=== PATIENT | female | born 1965 | race African-American/Black ===

== ENCOUNTER 2017-05-10 10:51 | Emergency (ER) | payer SELFPAY | END 2017-05-10 12:29 | disposition home or self-care (01) | LOC: ER 10:51 | DX: S16.1XXA Strain of muscle, fascia and tendon at neck level, initial encounter (principal); M54.6 Pain in thoracic spine; I10 Essential (primary) hypertension; V43.62XA Car passenger injured in collision with other type car in traffic accident, initial encounter; Y93.89 Activity, other specified; Y92.410 Unspecified street and highway as the place of occurrence of the external cause; Y99.8 Other external cause status | CPT/HCPCS: 72040; 72072; 99284 ==

== ENCOUNTER 2018-01-06 20:50 | Emergency (ER) | payer SELFPAY ==
[~2018-01-06] VITALS: Ht 170.2 cm; Wt 77.1 kg
[~2018-01-06 20:50] MED LIST: METH4TAB2 PO
--- NOTE | 2018-01-06 21:36 | PHYS DOC ---
Past Medical History Past Medical History: Hypertension, Unknown Additional Past Medical Histor: HEART MURMUR Past Surgical History: No Surgical History Additional Past Surgical Histo: blood clot Alcohol Use: Occasionally Drug Use: None Adult General Chief Complaint Chief Complaint: DIZZY/LIGHT HEADED HPI HPI Patient is a 53 year old female who comes in for dental pain and high blood pressure. She state the dental pain causes her blood pressure to elevate and the dentist won't help her with her teeth until her blood pressure is under control, so she if frustrated and not sure what to do. Pt has felt a little dizzy today but states she will often feel this way when her pressure is high. Pt denies neurological deficits. She is ambulatory in to the ER in no distress. Initial blood pressure is 170/90's. Review of Systems Review of Systems Constitutional: Denies fever or chills HEENT: Reports dental pain Respiratory: Denies cough or shortness of breath Cardiovascular: Denies chest pain GI: Denies abdominal pain, nausea, vomiting, bloody stools or diarrhea Musculoskeletal: Denies back pain or joint pain Integument: Denies rash or skin lesions Neurologic: Denies headache, focal weakness or sensory changes. Intermittent dizziness. All other systems were reviewed and found to be within normal limits, except as documented in this note. Current Medications Current Medications Current Medications Medications (Trade) Dose Ordered Sig/Mildred Start Time Stop Time Status Last Admin Dose Admin Acetaminophen/ Hydrocodone Bitart (Lortab 10/325) 1 tab 1X ONCE 01/06/18 21:45 01/06/18 21:46 DC 01/06/18 21:48 1 TAB Clonidine HCl (Catapres) 0.2 mg 1X ONCE 01/06/18 22:30 01/06/18 22:32 DC 01/06/18 22:36 0.2 MG Hydrochlorothiazide (Microzide) 25 mg 1X ONCE 01/06/18 21:45 01/06/18 21:46 DC 01/06/18 21:51 25 MG Ibuprofen (Motrin) 800 mg 1X ONCE 01/06/18 23:15 01/06/18 23:16 DC 01/06/18 23:27 800 MG Ondansetron HCl (Zofran Odt) 4 mg 1X ONCE 01/06/18 23:15 01/06/18 23:16 DC 01/06/18 23:28 4 MG Penicillin V Potassium (Veetid) 500 mg 1X ONCE 01/06/18 21:45 01/06/18 21:46 DC 01/06/18 21:47 500 MG Allergies Allergies Allergies Coded Allergies Type Severity Reaction Last Updated Verified amoxicillin Allergy Mild RASH 01/07/18 Yes Physical Exam Physical Exam Constitutional: Well developed, well nourished, no acute distress, non-toxic appearance. HENT: Normocephalic, atraumatic, bilateral external ears normal, oropharynx moist, no oral exudates, nose normal. Widespread dental decay. Pain in lower left tooth that is carious and tender to palpation. No abscess identified. Eyes: PERRLA, EOMI, conjunctiva normal, no discharge. Neck: Normal range of motion, no tenderness, supple, no stridor. Cardiovascular:Heart rate regular rhythm, no murmur Lungs & Thorax: Bilateral breath sounds clear to auscultation Abdomen: Bowel sounds normal, soft, no tenderness, no masses, no pulsatile masses. Skin: Warm, dry, no erythema, no rash. Back: No tenderness, no CVA tenderness. Extremities: No tenderness, no cyanosis, no clubbing, ROM intact, no edema. Neurologic: Alert and oriented X 3, normal motor function, normal sensory function, no focal deficits noted. Ambulatory in to the ER without difficulty. Psychologic: Affect normal, judgement normal, mood normal. Current Patient Data Vital Signs Vital Signs Date Time Temp Pulse Resp B/P (MAP) Pulse Ox O2 Delivery O2 Flow Rate FiO2 01/06/18 22:36 71 183/103 01/06/18 21:48 16 98 Room Air 01/06/18 21:26 98.6 98.6 EKG EKG [] Radiology/Procedures Radiology/Procedures [] Course & Med Decision Making Course & Med Decision Making Pertinent Labs and Imaging studies reviewed. (See chart for details) Pt was given [place], P[facility] VK and HCTZ and blood pressure was rechecked and was actually higher, so she was given Clonidine 0.2mg. It was rechecked and better but still elevated. She was still reporting pain so Ibuprofen was given and blood pressure will be rechecked in 30 minutes. Discussed with pt the importance of low salt diet and close fu with PCP. Stacy Disclaimer Stacy Disclaimer This electronic medical record was generated, in whole or in part, using a voice recognition dictation system. Departure Departure Impression: Primary Impression: High blood pressure Additional Impression: Pain, dental Disposition: HOME, SELF-CARE Condition: IMPROVED Referrals: NO PCP (PCP) RAQUEL PERRY MD Patient Instructions: Dental Pain, [id number], Hypertension Additional Instructions: You will need close follow up by a primary care provider as well as a dentist. Scripts Clindamycin Hcl (CLINDAMYCIN HCL) 300 Mg Capsule 1 CAP PO TID, #30 CAP Prov: WILBUR LOONEY APRN 01/07/18 Hydrochlorothiazide (HYDROCHLOROTHIAZIDE TABLET ) 25 Mg Tablet 1 TAB PO DAILY, #30 TAB 5 Refills Prov: TERRI PIÑA 01/06/18 Hydrocodone/Apap 5-325 (NORCO 5-325 TABLET) 1 Each Tablet 1 TAB PO TID, #15 TAB Prov: TERRI PIÑA 01/06/18 Problem Qualifiers TERRI PIÑA Jan 06, 2018 21:36 WILBUR LOONEY APRN Jan 07, 2018 00:17
[2018-01-06] MEDS ORDERED: HYDROcodone/APAP 10/325 1 TAB TABLET PO ONE (21:45)
[2018-01-06] MEDS ORDERED: hydroCHLOROthiazide 12.5 MG CAPSULE PO ONE (21:45)
[2018-01-06] MEDS ORDERED: PENICILLIN V K 250 MG TABLET. PO ONE (21:45)
[2018-01-06] MEDS ORDERED: AMOX500T PO (21:59)
[2018-01-06] MEDS ORDERED: HYDR-971 PO (21:59)
[2018-01-06] MEDS ORDERED: HYDR25TA9 PO (21:59)
[2018-01-06] MEDS ORDERED: cloNIDine HCL 0.1 MG TABLET PO ONE (22:30)
[2018-01-06] MEDS ORDERED: ONDANSETRON ODT 4 MG TAB.RAPDIS. PO ONE (23:15)
[2018-01-06] MEDS ORDERED: IBUPROFEN 800 MG TABLET. PO ONE (23:15)
[2018-01-06 23:58] VITALS: BP 153/87
[2018-01-07] MEDS ORDERED: CLIN300C8 PO (00:17)
== END 2018-01-07 00:20 | disposition home or self-care (01) ==
LOC: ER 20:50
DX: K08.89 Other specified disorders of teeth and supporting structures (principal); I10 Essential (primary) hypertension; Z88.1 Allergy status to other antibiotic agents
CPT/HCPCS: 99284; Q0162

== ENCOUNTER 2018-01-16 09:09 | Emergency (ER) | payer SELFPAY ==
[~2018-01-16] VITALS: Ht 170.2 cm; Wt 77.1 kg
[~2018-01-16 09:09] MED LIST changes: +AMOX500T PO; +CLIN300C8 PO; +HYDR-971 PO; +HYDR25TA9 PO
--- NOTE | 2018-01-16 09:28 | EKG ---
[facility] [address] [place] [address] Test Date: 2018-01-16 Test Time: 09:13:45 Pat Name: CHRIS MORALES Department: Room: Gender: F [employer] Director: : 1965 Requested By: AMY HERNANDEZ Order Number: [id number] Reading MD: Abhijeet Ruiz MD Measurements Intervals Mobile Rate: 78 P: 43 DC: 176 QRS: -9 QRSD: 82 T: 14 QT: 382 QTc: 439 Interpretive Statements SINUS RHYTHM Electronically Signed On 01-16-2018 10:38:21 CDT by Abhijeet Ruiz MD
[2018-01-16 09:41] LABS: BASO % 0 % (0-3); EOS # 0.1 x10^3/uL (0.0-0.7); EOS % 1 % (0-3); HEMATOCRIT 47.8 % (36.0-47.0); HEMOGLOBIN 16.3 g/dL (12.0-15.5); LYMPH # 1.8 x10^3/uL (1.0-4.8); LYMPH % 18 % (24-48); MEAN CORPUSCULAR HEMOGLOBIN 29 pg (25-35); MEAN CORPUSCULAR HGB CONC 34 g/dL (31-37); MEAN CORPUSCULAR VOLUME 84 fL (79-100); MONO # 0.8 x10^3/uL (0.0-1.1); MONO % 9 % (0-9); NEUT % 72 % (31-73); PLATELET COUNT 235 x10^3/uL (140-400); RED BLOOD COUNT 5.68 x10^6/uL (3.50-5.40); RED CELL DISTRIBUTION WIDTH 13.8 % (11.5-14.5); WHITE BLOOD COUNT 9.7 x10^3/uL (4.0-11.0)
[2018-01-16 09:49] LABS: CALCIUM 9.9 mg/dL (8.5-10.1); GFR 69.9; POTASSIUM 3.4 mmol/L (3.5-5.1); PROTHROMBIN TIME PATIENT 13.2 SEC (11.7-14.0)
[2018-01-16 09:50] LABS: BILIRUBIN,URINE NEGATIVE (NEG); CLARITY,URINE CLOUDY; COLOR,URINE YELLOW; NITRITE,URINE POSITIVE (NEG); PH,URINE 6.5; PROTEIN,URINE NEGATIVE (NEG-TRACE); UROBILINOGEN,URINE 0.2 mg/dL (0.2 mg/dL)
[2018-01-16 09:55] LABS: ALBUMIN 4.1 g/dL (3.4-5.0); ALBUMIN/GLOBULIN RATIO 1.1 (1.0-1.7); MAGNESIUM 2.2 mg/dL (1.8-2.4); TOTAL BILIRUBIN 0.4 mg/dL (0.2-1.0)
[2018-01-16 09:58] LABS: BACTERIA,URINE MANY /HPF (0-FEW); SQUAMOUS EPITHELIAL CELL,UR FEW /LPF; WBC,URINE TNTC /HPF (0-4)
[2018-01-16] MEDS ORDERED: BUPIVAC MPF-EPI 0.5%-1:200000 30 ML VIAL. INJ ONE (10:00)
[2018-01-16 10:03] LABS: CREATINE KINASE 117 U/L (26-192)
--- NOTE | 2018-01-16 10:38 | RAD ---
Examination: CHEST PA LATERAL History: DIZZINESS X TODAY WITH LEFT UPPER CHEST/SHOULDER PAIN Comparison/Correlation: 06/03/2011 two-view chest x-ray exam Findings: PA and lateral views of chest were obtained. Heart size and pulmonary vasculature are normal. No infiltrate or pleural effusion. No pneumothorax. Bony structures are unremarkable. Impression: No active disease. Electronically signed by: Cortez López MD (01/16/2018 10:34 AM) [id number]
[2018-01-16] MEDS ORDERED: DEXAMETHASONE SOD PHOS 20 MG/5 ML VIAL. IV ONE (10:45)
--- NOTE | 2018-01-16 12:37 | PHYS DOC ---
Past Medical History Past Medical History: Hypertension, Unknown Additional Past Medical Histor: HEART MURMUR Past Surgical History: No Surgical History Additional Past Surgical Histo: blood clot Alcohol Use: Occasionally Drug Use: None Adult General Chief Complaint Chief Complaint: DIZZY/LIGHT HEADED HPI HPI Patient is a 53 year old [f__sex] who presents with [] Review of Systems Review of Systems Constitutional: Denies fever or chills [] Eyes: Denies change in visual acuity, redness, or eye pain [] HENT: Denies nasal congestion or sore throat [] Respiratory: Denies cough or shortness of breath [] Cardiovascular: No additional information not addressed in HPI [] GI: Denies abdominal pain, nausea, vomiting, bloody stools or diarrhea [] : Denies dysuria or hematuria [] Musculoskeletal: Denies back pain or joint pain [] Integument: Denies rash or skin lesions [] Neurologic: Denies headache, focal weakness or sensory changes [] Endocrine: Denies polyuria or polydipsia [] All other systems were reviewed and found to be within normal limits, except as documented in this note. Current Medications Current Medications Current Medications Medications (Trade) Dose Ordered Sig/Mildred Start Time Stop Time Status Last Admin Dose Admin Bupivacaine HCl/ Epinephrine Bitart (Sensorcain-Mpf Epi 0.5%-1:[id number]) 30 ml 1X ONCE 01/16/18 10:00 01/16/18 10:02 DC 01/16/18 10:12 30 ML Ceftriaxone Sodium 50 ml @ 100 mls/hr 1X ONCE 01/16/18 10:45 01/16/18 11:14 DC 01/16/18 10:50 100 MLS/HR Dexamethasone Sodium Phosphate (Decadron) 10 mg 1X ONCE 01/16/18 10:45 01/16/18 10:46 DC 01/16/18 10:50 10 MG Allergies Allergies Allergies Coded Allergies Type Severity Reaction Last Updated Verified amoxicillin Allergy Intermediate RASH 01/16/18 Yes Physical Exam Physical Exam Constitutional: Well developed, well nourished, no acute distress, non-toxic appearance. [] HENT: Normocephalic, atraumatic, bilateral external ears normal, oropharynx moist, no oral exudates, nose normal. [] Eyes: PERRLA, EOMI, conjunctiva normal, no discharge. [] Neck: Normal range of motion, no tenderness, supple, no stridor. [] Cardiovascular:Heart rate regular rhythm, no murmur [] Lungs & Thorax: Bilateral breath sounds clear to auscultation [] Abdomen: Bowel sounds normal, soft, no tenderness, no masses, no pulsatile masses. [] Skin: Warm, dry, no erythema, no rash. [] Back: No tenderness, no CVA tenderness. [] Extremities: No tenderness, no cyanosis, no clubbing, ROM intact, no edema. [] Neurologic: Alert and oriented X 3, normal motor function, normal sensory function, no focal deficits noted. [] Psychologic: Affect normal, judgement normal, mood normal. [] Current Patient Data Vital Signs Vital Signs Date Time Temp Pulse Resp B/P (MAP) Pulse Ox O2 Delivery O2 Flow Rate FiO2 01/16/18 12:54 72 20 100 01/16/18 09:18 98.1 180/95 (123) Room Air 98.1 Lab Values Laboratory Tests Test 01/16/18 09:29 01/16/18 09:35 01/16/18 11:30 White Blood Count 9.7 x10^3/uL (4.0-11.0) Red Blood Count 5.68 x10^6/uL (3.50-5.40) H Hemoglobin 16.3 g/dL (12.0-15.5) H Hematocrit 47.8 % (36.0-47.0) H Mean Corpuscular Volume 84 fL (79-100) Mean Corpuscular Hemoglobin 29 pg (25-35) Mean Corpuscular Hemoglobin Concent 34 g/dL (31-37) Red Cell Distribution Width 13.8 % (11.5-14.5) Platelet Count 235 x10^3/uL (140-400) Neutrophils (%) (Auto) 72 % (31-73) Lymphocytes (%) (Auto) 18 % (24-48) L Monocytes (%) (Auto) 9 % (0-9) Eosinophils (%) (Auto) 1 % (0-3) Basophils (%) (Auto) 0 % (0-3) Neutrophils # (Auto) 7.0 x10^3uL (1.8-7.7) Lymphocytes # (Auto) 1.8 x10^3/uL (1.0-4.8) Monocytes # (Auto) 0.8 x10^3/uL (0.0-1.1) Eosinophils # (Auto) 0.1 x10^3/uL (0.0-0.7) Basophils # (Auto) 0.0 x10^3/uL (0.0-0.2) Prothrombin Time 13.2 SEC (11.7-14.0) Prothrombin Time INR 1.1 (0.8-1.1) Sodium Level 141 mmol/L (136-145) Potassium Level 3.4 mmol/L (3.5-5.1) L Chloride Level 102 mmol/L (98-107) Carbon Dioxide Level 26 mmol/L (21-32) Anion Gap 13 (6-14) Blood Urea Nitrogen 17 mg/dL (7-20) Creatinine 1.0 mg/dL (0.6-1.0) Estimated GFR (Cockcroft-Gault) 69.9 BUN/Creatinine Ratio 17 (6-20) Glucose Level 93 mg/dL (70-99) Calcium Level 9.9 mg/dL (8.5-10.1) Magnesium Level 2.2 mg/dL (1.8-2.4) Total Bilirubin 0.4 mg/dL (0.2-1.0) Aspartate Amino Transferase (AST) 18 U/L (15-37) Alanine Aminotransferase (ALT) 38 U/L (14-59) Alkaline Phosphatase 141 U/L (46-116) H Creatine Kinase 117 U/L (26-192) Creatine Kinase MB (Mass) < 0.5 ng/mL (0.0-3.6) Creatine Kinase MB Relative Index % (0-4) Troponin I Quantitative < 0.017 ng/mL (0.000-0.055) < 0.017 ng/mL (0.000-0.055) KJ-Sov-N-Type Natriuretic Peptide 45 pg/mL (0-124) Total Protein 8.0 g/dL (6.4-8.2) Albumin 4.1 g/dL (3.4-5.0) Albumin/Globulin Ratio 1.1 (1.0-1.7) Lipase 167 U/L (73-393) Urine Collection Type Unknown Urine Color Yellow Urine Clarity Cloudy Urine pH 6.5 Urine Specific [place] 1.015 Urine Protein Negative mg/dL (NEG-TRACE) Urine Glucose (UA) Negative mg/dL (NEG) Urine Ketones (Stick) Negative mg/dL (NEG) Urine Blood Small (NEG) Urine Nitrite Positive (NEG) Urine Bilirubin Negative (NEG) Urine Urobilinogen Dipstick 0.2 mg/dL (0.2 mg/dL) Urine Leukocyte Esterase Large (NEG) Urine RBC 3-5 /HPF (0-2) Urine WBC Tntc /HPF (0-4) Urine Squamous Epithelial Cells Few /LPF Urine Renal Epithelial Cells Occ /LPF Urine Bacteria Many /HPF (0-FEW) Urine Mucus Slight /LPF Laboratory Tests 01/16/18 09:29 Laboratory Tests 01/16/18 09:29 EKG EKG @0913, NSR at 78bpm, NO ST elevation Radiology/Procedures Radiology/Procedures [] Course & Med Decision Making Course & Med Decision Making Pertinent Labs and Imaging studies reviewed. (See chart for details) [] Dragon Disclaimer Dragon Disclaimer This electronic medical record was generated, in whole or in part, using a voice recognition dictation system. Departure Departure Impression: Primary Impression: Pain, dental Additional Impressions: Shoulder pain Urinary tract infection Disposition: HOME, SELF-CARE Condition: STABLE Referrals: NO PCP (PCP) Patient Instructions: Dental Caries-Brief, Shoulder Pain, [id number], Toothache-Brief, Urinary Tract Infection, Khhx-[id number] Scripts Cephalexin (KEFLEX) 500 Mg Capsule 500 MG PO TID for 7 Days, #21 CAP Prov: AMY HERNANDEZ DO 01/16/18 Chlorhexidine Gluconate (PERIDEX) 15 Ml Mouthwash 15 ML PO BID, #946 ML Prov: AMY HERNANDEZ DO 01/16/18 Prednisone (PREDNISONE) 20 Mg Tablet 2 TAB PO DAILY, #8 TAB Start on Mon01/17/18 Prov: AMY HERNANDEZ DO 01/16/18 Hydrocodone/Apap 5-325 (NORCO 5-325 TABLET) 1 Each Tablet 1 TAB PO PRN Q6HRS PRN for PAIN, #10 TAB 0 Refills Prov: AMY HERNANDEZ DO 01/16/18 Problem Qualifiers Additional Impressions: Shoulder pain Chronicity: acute Laterality: left Qualified Codes: M25.512 - Pain in left shoulder Urinary tract infection Urinary tract infection type: acute cystitis AMY HERNANDEZ DO Jan 16, 2018 12:37
[2018-01-16] MEDS ORDERED: PRED20TA PO (12:42)
[2018-01-16] MEDS ORDERED: HYDR-971 PO (12:42)
[2018-01-16] MEDS ORDERED: CEPH-264 PO (12:42)
[2018-01-16] MEDS ORDERED: CHLO15MO2 PO (12:42)
[2018-01-16 12:54] VITALS: BP 180/100
== END 2018-01-16 12:55 | disposition home or self-care (01) ==
LOC: ER 09:09
DX: N39.0 Urinary tract infection, site not specified (principal); M25.512 Pain in left shoulder; K08.89 Other specified disorders of teeth and supporting structures; R42 Dizziness and giddiness; R55 Syncope and collapse; I10 Essential (primary) hypertension; Z88.1 Allergy status to other antibiotic agents
CPT/HCPCS: 36415; 71046; 80053; 81001; 82553; 83690; 83735; 83880; 84484; 85025; 85610; 87086; 93005; 96365; 96372; 96375; 99285; J0690; J1100; J3490; 87186

== ENCOUNTER 2018-06-12 13:35 | Emergency (ER) | payer SELFPAY ==
[~2018-06-12] VITALS: Ht 170.2 cm; Wt 78.0 kg
[~2018-06-12 13:35] MED LIST changes: +CEPH-264 PO; +CHLO15MO2 PO; +HYDR-2145 PO; +HYDR-3164 PO; -HYDR-971 PO; -HYDR25TA9 PO; +PRED20TA PO
[2018-06-12 14:05] LABS: BASO # 0.1 x10^3/uL (0.0-0.2); BASO % 1 % (0-3); EOS # 0.2 x10^3/uL (0.0-0.7); EOS % 2 % (0-3); HEMOGLOBIN 15.5 g/dL (12.0-15.5); LYMPH # 2.3 x10^3/uL (1.0-4.8); LYMPH % 23 % (24-48); MEAN CORPUSCULAR HEMOGLOBIN 28 pg (25-35); MEAN CORPUSCULAR HGB CONC 34 g/dL (31-37); MEAN CORPUSCULAR VOLUME 81 fL (79-100); MONO # 0.7 x10^3/uL (0.0-1.1); MONO % 7 % (0-9); NEUT # 6.5 x10^3uL (1.8-7.7); NEUT % 67 % (31-73); PLATELET COUNT 264 x10^3/uL (140-400); RED BLOOD COUNT 5.65 x10^6/uL (3.50-5.40); RED CELL DISTRIBUTION WIDTH 15.1 % (11.5-14.5); WHITE BLOOD COUNT 9.7 x10^3/uL (4.0-11.0)
[2018-06-12 14:13] LABS: CALCIUM 9.7 mg/dL (8.5-10.1); CREATININE 0.9 mg/dL (0.6-1.0); POTASSIUM 3.8 mmol/L (3.5-5.1)
[2018-06-12] MEDS ORDERED: cloNIDine HCL 0.1 MG TABLET PO ONE (14:15)
[2018-06-12 14:19] LABS: ALBUMIN 3.7 g/dL (3.4-5.0); ALBUMIN/GLOBULIN RATIO 0.8 (1.0-1.7); TOTAL BILIRUBIN 0.3 mg/dL (0.2-1.0); TOTAL PROTEIN 8.1 g/dL (6.4-8.2)
[2018-06-12 15:05] LABS: BILIRUBIN,URINE NEGATIVE (NEG); CLARITY,URINE CLEAR; COLOR,URINE YELLOW; NITRITE,URINE NEGATIVE (NEG); PROTEIN,URINE NEGATIVE (NEG-TRACE)
[2018-06-12 15:19] LABS: BACTERIA,URINE MODERATE /HPF (0-FEW); RBC,URINE RARE /HPF (0-2); WBC,URINE >40 /HPF (0-4)
[2018-06-12 15:20] LABS: SQUAMOUS EPITHELIAL CELL,UR FEW /LPF
[2018-06-12] MEDS ORDERED: SULF1TAB24 PO (15:46)
[2018-06-12] MEDS ORDERED: HYDR12.58 PO (15:46)
--- NOTE | 2018-06-12 15:47 | PHYS DOC ---
Past Medical History Past Medical History: Hypertension, Unknown Additional Past Medical Histor: HEART MURMUR Past Surgical History: No Surgical History Additional Past Surgical Histo: blood clot Alcohol Use: Occasionally Drug Use: None Adult General Chief Complaint Chief Complaint: HYPERTENSION HPI HPI Patient is a 53 year old female who presents with high blood pressure and headache. The patient states that she left work because she felt like she was having an episode of high blood pressure. She has a headache. She has been taking her HCTZ as directed. She has not taken anything for her headache. She denies chest pain or diaphoresis. Review of Systems Review of Systems Constitutional: Denies fever or chills [] Respiratory: Denies cough or shortness of breath [] Cardiovascular: No additional information not addressed in HPI [] GI: Denies abdominal pain, nausea, vomiting, bloody stools or diarrhea [] : Denies dysuria or hematuria [] Musculoskeletal: Denies back pain or joint pain [] Integument: Denies rash or skin lesions [] Neurologic: See HPI Endocrine: Denies polyuria or polydipsia [] All other systems were reviewed and found to be within normal limits, except as documented in this note. Current Medications Current Medications Current Medications Medications (Trade) Dose Ordered Sig/Mildred Start Time Stop Time Status Last Admin Dose Admin Clonidine HCl (Catapres) 0.1 mg 1X ONCE 06/12/18 14:15 06/12/18 14:16 DC 06/12/18 14:14 0.1 MG Allergies Allergies Allergies Coded Allergies Type Severity Reaction Last Updated Verified amoxicillin Allergy Intermediate RASH 01/16/18 Yes Physical Exam Physical Exam Constitutional: Well developed, well nourished, no acute distress, non-toxic appearance. [] HENT: Normocephalic, atraumatic, bilateral external ears normal, oropharynx moist, no oral exudates, nose normal. [] Eyes: PERRLA, EOMI, conjunctiva normal, no discharge. [] Neck: Normal range of motion, no tenderness, supple, no stridor. [] Cardiovascular:Heart rate regular rhythm, no murmur [] Lungs & Thorax: Bilateral breath sounds clear to auscultation [] Abdomen: Bowel sounds normal, soft, no tenderness, no masses, no pulsatile masses. [] Skin: Warm, dry, no erythema, no rash. [] Back: No tenderness, no CVA tenderness. [] Extremities: No tenderness, no cyanosis, no clubbing, ROM intact, no edema. [] Neurologic: Alert and oriented X 3, normal motor function, normal sensory function, no focal deficits noted, cranial nerves II-XII are grossly intact. [] Psychologic: Affect normal, judgement normal, mood normal. [] Current Patient Data Vital Signs Lab Values Laboratory Tests Test 06/12/18 13:55 06/12/18 14:50 White Blood Count 9.7 x10^3/uL (4.0-11.0) Red Blood Count 5.65 x10^6/uL (3.50-5.40) H Hemoglobin 15.5 g/dL (12.0-15.5) Hematocrit 46.0 % (36.0-47.0) Mean Corpuscular Volume 81 fL (79-100) Mean Corpuscular Hemoglobin 28 pg (25-35) Mean Corpuscular Hemoglobin Concent 34 g/dL (31-37) Red Cell Distribution Width 15.1 % (11.5-14.5) H Platelet Count 264 x10^3/uL (140-400) Neutrophils (%) (Auto) 67 % (31-73) Lymphocytes (%) (Auto) 23 % (24-48) L Monocytes (%) (Auto) 7 % (0-9) Eosinophils (%) (Auto) 2 % (0-3) Basophils (%) (Auto) 1 % (0-3) Neutrophils # (Auto) 6.5 x10^3uL (1.8-7.7) Lymphocytes # (Auto) 2.3 x10^3/uL (1.0-4.8) Monocytes # (Auto) 0.7 x10^3/uL (0.0-1.1) Eosinophils # (Auto) 0.2 x10^3/uL (0.0-0.7) Basophils # (Auto) 0.1 x10^3/uL (0.0-0.2) Sodium Level 139 mmol/L (136-145) Potassium Level 3.8 mmol/L (3.5-5.1) Chloride Level 103 mmol/L (98-107) Carbon Dioxide Level 25 mmol/L (21-32) Anion Gap 11 (6-14) Blood Urea Nitrogen 17 mg/dL (7-20) Creatinine 0.9 mg/dL (0.6-1.0) Estimated GFR (Cockcroft-Gault) 79.0 BUN/Creatinine Ratio 19 (6-20) Glucose Level 95 mg/dL (70-99) Calcium Level 9.7 mg/dL (8.5-10.1) Total Bilirubin 0.3 mg/dL (0.2-1.0) Aspartate Amino Transferase (AST) 16 U/L (15-37) Alanine Aminotransferase (ALT) 19 U/L (14-59) Alkaline Phosphatase 116 U/L (46-116) Total Protein 8.1 g/dL (6.4-8.2) Albumin 3.7 g/dL (3.4-5.0) Albumin/Globulin Ratio 0.8 (1.0-1.7) L Urine Collection Type Unknown Urine Color Yellow Urine Clarity Clear Urine pH 6.0 Urine Specific [place] 1.015 Urine Protein Negative mg/dL (NEG-TRACE) Urine Glucose (UA) Negative mg/dL (NEG) Urine Ketones (Stick) Negative mg/dL (NEG) Urine Blood Small (NEG) Urine Nitrite Negative (NEG) Urine Bilirubin Negative (NEG) Urine Urobilinogen Dipstick 1.0 mg/dL (0.2 mg/dL) Urine Leukocyte Esterase Large (NEG) Urine RBC Rare /HPF (0-2) Urine WBC >40 /HPF (0-4) Urine Squamous Epithelial Cells Few /LPF Urine Bacteria Moderate /HPF (0-FEW) Laboratory Tests 06/12/18 13:55 Laboratory Tests 06/12/18 13:55 Microbiology 06/12/18 Urine Culture - Final, Complete 06/12/18 Urine Culture Result 1 (PETRA) - Final, Complete 06/12/18 Antimicrobic Susceptibility - Final, Complete EKG EKG [] Radiology/Procedures Radiology/Procedures [] Course & Med Decision Making Course & Med Decision Making Pertinent Labs and Imaging studies reviewed. (See chart for details) []The patient was given a dose of clonidine in the ED. Dragon Disclaimer Dragon Disclaimer This electronic medical record was generated, in whole or in part, using a voice recognition dictation system. Departure Departure Impression: Primary Impression: High blood pressure Additional Impression: UTI (urinary tract infection) Disposition: 01 HOME, SELF-CARE Condition: STABLE Referrals: NO PCP (PCP) Patient Instructions: Hypertension, Urinary Tract Infection Additional Instructions: Take the medication as directed. Establish care at a clinic for further evaluation and management of your hypertension. Have your urine rechecked in 1 week to make sure your urinary tract infection is cleared. Scripts Hydrochlorothiazide (HYDROCHLOROTHIAZIDE TABLET) 12.5 Mg Tablet 12.5 MG PO DAILY for DIURETIC, #30 TAB 0 Refills Prov: WILBUR LOONEY APRN 06/12/18 Sulfamethoxazole/Trimethoprim (BACTRIM DS TABLET) 1 Each Tablet 1 TAB PO BID for UTI, #14 TAB Prov: WILBUR LOONEY APRN 06/12/18 Problem Qualifiers WILBUR LOONEY APRN Jun 12, 2018 15:47
[2018-06-12 16:10] VITALS: BP 159/98
== END 2018-06-12 16:15 | disposition home or self-care (01) ==
LOC: ER 13:35
DX: I10 Essential (primary) hypertension (principal); N39.0 Urinary tract infection, site not specified; Z88.1 Allergy status to other antibiotic agents
CPT/HCPCS: 36415; 80053; 81001; 85025; 87086; 87186; 99283

== ENCOUNTER 2018-11-21 13:48 | Emergency (ER) | payer OTHER ==
[~2018-11-21] VITALS: Ht 170.2 cm; Wt 75.7 kg
[~2018-11-21 13:48] MED LIST changes: +HYDR12.58 PO; +SULF1TAB24 PO
[2018-11-21 14:03] VITALS: BP 135/93
[2018-11-21 15:16] LABS: BILIRUBIN,URINE NEGATIVE (NEG); CLARITY,URINE CLEAR; COLOR,URINE YELLOW; NITRITE,URINE POSITIVE (NEG); PH,URINE 5.5; PROTEIN,URINE NEGATIVE (NEG-TRACE); UROBILINOGEN,URINE 0.2 mg/dL (0.2 mg/dL)
[2018-11-21 15:32] LABS: BACTERIA,URINE MANY /HPF (0-FEW); HYALINE CASTS, URINE FEW /HPF; RBC,URINE 0 /HPF (0-2); SQUAMOUS EPITHELIAL CELL,UR MOD /LPF; WBC,URINE >40 /HPF (0-4)
--- NOTE | 2018-11-21 15:32 | RAD ---
EXAM: Lumbar spine, 3 views. HISTORY: Pain. COMPARISON: None. FINDINGS: 3 views of the lumbar spine are obtained. There is sacralization of the L5 transverse processes resulting in articulation with the underlying sacrum, a normal variant. 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 There is no listhesis. The lumbar vertebral bodies are normal in height and the lumbar disc spaces are preserved. IMPRESSION: 1. 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 2. No acute osseous finding. Electronically signed by: April Stovall MD (11/21/2018 3:29 PM) [facility]
[2018-11-21] MEDS ORDERED: CIPR500T94 PO (16:08)
[2018-11-21] MEDS ORDERED: METH4TAB2 PO (16:08)
[2018-11-21] MEDS ORDERED: DICL50TA4 PO (16:08)
[2018-11-21] MEDS ORDERED: METH-37 PO (16:08)
--- NOTE | 2018-11-21 16:09 | PHYS DOC ---
Past Medical History Past Medical History: Hypertension, Unknown Additional Past Medical Histor: HEART MURMUR Past Surgical History: No Surgical History Additional Past Surgical Histo: blood clot Alcohol Use: Occasionally Drug Use: None Adult General Chief Complaint Chief Complaint: BACK PAIN OR INJURY [facility] HPI Patient is a 53 year old female with history of hypertension who presents to the ED today complaining of a throbbing intermittent 7 out of 10 bilateral low back pain nonradiating in nature that began a week ago after doing some lifting at work. Patient denies any loss of bowel or bladder function. Denies falling or injuring herself during this process but states the pain began after lifting boxes at work. Denies any numbness or tingling to bilateral lower extremities. Patient is also complaining of UTI symptoms including urgency frequency and dysuria. She states the symptoms began before her back pain began. Review of Systems Review of Systems Constitutional: Denies fever or chills [] Eyes: Denies change in visual acuity, redness, or eye pain [] HENT: Denies nasal congestion or sore throat [] Respiratory: Denies cough or shortness of breath [] Cardiovascular: No additional information not addressed in HPI [] GI: Denies abdominal pain, nausea, vomiting, bloody stools or diarrhea [] : Denies dysuria or hematuria [] Musculoskeletal: Reports low back pain Integument: Denies rash or skin lesions [] Neurologic: Denies headache, focal weakness or sensory changes [] All other systems were reviewed and found to be within normal limits, except as documented in this note. Allergies Allergies Allergies Coded Allergies Type Severity Reaction Last Updated Verified amoxicillin Allergy Intermediate RASH 01/16/18 Yes Physical Exam Physical Exam Constitutional: Well developed, well nourished, no acute distress, non-toxic appearance. [] HENT: Normocephalic, atraumatic, bilateral external ears normal, oropharynx moist, no oral exudates, nose normal. [] Eyes: PERRLA, EOMI, conjunctiva normal, no discharge. [] Neck: Normal range of motion, no tenderness, supple, no stridor. [] Cardiovascular:Heart rate regular rhythm, no murmur [] Lungs & Thorax: Bilateral breath sounds clear to auscultation [] Abdomen: Bowel sounds normal, soft, no tenderness, no masses, no pulsatile masses. [] Skin: Warm, dry, no erythema, no rash. [] Back: Diffuse spinal muscle tenderness to bilateral lumbar spine, no midline lumbar spine tenderness, no CVA tenderness. [] Extremities: No tenderness, no cyanosis, no clubbing, ROM intact, no edema. [] Neurologic: Alert and oriented X 3, normal motor function, normal sensory function, no focal deficits noted. [] Psychologic: Affect normal, judgement normal, mood normal. [] Current Patient Data Vital Signs Vital Signs Date Time Temp Pulse Resp B/P (MAP) Pulse Ox O2 Delivery O2 Flow Rate FiO2 11/21/18 14:03 98.0 82 18 135/93 (107) 99 Room Air 98.0 Lab Values Laboratory Tests Test 11/21/18 14:58 Urine Collection Type Unknown Urine Color Yellow Urine Clarity Clear Urine pH 5.5 Urine Specific [place] 1.015 Urine Protein Negative mg/dL (NEG-TRACE) Urine Glucose (UA) Negative mg/dL (NEG) Urine Ketones (Stick) Negative mg/dL (NEG) Urine Blood Moderate (NEG) Urine Nitrite Positive (NEG) Urine Bilirubin Negative (NEG) Urine Urobilinogen Dipstick 0.2 mg/dL (0.2 mg/dL) Urine Leukocyte Esterase Moderate (NEG) Urine RBC 0 /HPF (0-2) Urine WBC >40 /HPF (0-4) Urine Squamous Epithelial Cells Mod /LPF Urine Bacteria Many /HPF (0-FEW) Urine Hyaline Casts Few /HPF Urine Mucus Mod /LPF EKG EKG [] Radiology/Procedures Radiology/Procedures []PROCEDURE: LUMBAR SPINE 2-3V EXAM: Lumbar spine, 3 views. HISTORY: Pain. COMPARISON: None. FINDINGS: 3 views of the lumbar spine are obtained. There is sacralization of the L5 transverse processes resulting in articulation with the underlying sacrum, a normal variant. 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 There is no listhesis. The lumbar vertebral bodies are normal in height and the lumbar disc spaces are preserved. IMPRESSION: 1. 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 2. No acute osseous finding. Electronically signed by: April Stovall MD (11/21/2018 3:29 PM) [facility] DICTATED and SIGNED BY: APRIL STOVALL MD DATE: 11/21/18 1529 Course & Med Decision Making Course & Med Decision Making Pertinent Labs and Imaging studies reviewed. (See chart for details) This is a 53-year-old female patient who presents to the ED today with bilateral low back pain that began a week ago after lifting boxes at work. Also complaining of UTI symptoms. Lumbar spine x-rays are negative for any acute. Urine noted for UTI, discharged on Cipro. Dragon Disclaimer Dragon Disclaimer This electronic medical record was generated, in whole or in part, using a voice recognition dictation system. Departure Departure Impression: Primary Impression: Acute lumbosacral myofascial strain Additional Impression: Urinary tract infection Disposition: HOME, SELF-CARE Condition: STABLE Referrals: NO PCP (PCP) follow up in one week with your doctor Patient Instructions: Lumbosacral Strain, Urinary Tract Infection Additional Instructions: You were evaluated in the emergency room for low back pain as well as urinary tract infection. Please complete your prescribed antibiotic.Take the prescribed pain medicine as ordered. Follow-up with your own doctor in 1-2 weeks. Scripts Ciprofloxacin Hcl (CIPRO) 500 Mg Tablet 1 TAB PO BID, #14 TAB Prov: JAILENE OLSEN APRN 11/21/18 Methocarbamol (ROBAXIN) 500 Mg Tablet 1 TAB PO BID, #20 TAB Prov: JAILENE OLSEN APRN 11/21/18 Diclofenac Sodium (DICLOFENAC SODIUM) 50 Mg Tablet.dr 1 TAB PO BID, #20 TAB 0 Refills Prov: JAILENE OLSEN APRN 11/21/18 Methylprednisolone (MEDROL) 4 Mg Tab.ds.pk 1 PKG PO UD, #1 PKG Prov: JAILENE OLSEN APRN 11/21/18 Problem Qualifiers Primary Impression: Acute lumbosacral myofascial strain Encounter type: initial encounter Qualified Codes: S39.012A - Strain of muscle, fascia and tendon of lower back, initial encounter Additional Impression: Urinary tract infection Urinary tract infection type: site unspecified Hematuria presence: without hematuria Qualified Codes: N39.0 - Urinary tract infection, site not specified JAILENE OLSEN APRN Nov 21, 2018 16:08
== END 2018-11-21 16:19 | disposition home or self-care (01) ==
LOC: ER 13:48
DX: S39.012A Strain of muscle, fascia and tendon of lower back, initial encounter (principal); N39.0 Urinary tract infection, site not specified; I10 Essential (primary) hypertension; Z88.1 Allergy status to other antibiotic agents; X50.9XXA Other and unspecified overexertion or strenuous movements or postures, initial encounter; Y93.89 Activity, other specified; Y92.89 Other specified places as the place of occurrence of the external cause; Y99.0 Civilian activity done for income or pay
CPT/HCPCS: 72100; 81001; 87086; 99285

== ENCOUNTER 2020-01-10 12:27 | Observation (INO) | payer SELFPAY ==
[~2020-01-10] VITALS: Ht 170.2 cm; Wt 78.5 kg
[~2020-01-10 12:27] MED LIST changes: +CIPR500T94 PO; +DICL50TA4 PO; +METH-37 PO
--- NOTE | 2020-01-10 12:45 | PHYS DOC ---
Past Medical History Past Medical History: Hypertension, Unknown Additional Past Medical Histor: HEART MURMUR Past Surgical History: No Surgical History Additional Past Surgical Histo: blood clot Smoking Status: Current Every Day Smoker Alcohol Use: Occasionally Drug Use: None General Adult EDM: Chief Complaint: HYPERTENSION HPI: HPI: 55-year-old female presenting the emergency department today with hypertension. She reports having chronic hypertension having been prescribed medication by an ER doctor before and taking it and then running out of the medication never getting follow-up and not being treated. She denies chest pain or shortness of breath. She does have a mild headache. Her work is concerned for her and so sent her into the emergency department to be treated/medical screening exam. Review of systems negative for abdominal pain vomiting fevers chills decreased urine output chest pain shortness of breath or extremity numbness weakness or tingling. She denies facial droop or slurred speech. All other review of systems negative. ED course: 55-year-old female presenting with hypertension without symptoms. Initially blood pressure was significantly high. Blood pressure came down with labetalol well. Patient remains asymptomatic. Labs are remarkable for creatinine of 1.2. This is elevated from previous. Suggestive of acute kidney injury secondary to hypertensive emergency. On reexamination the patient's blood pressure is come down. We will admit the patient for IV fluids and continued management of the patient's blood pressure. We will speak with the hospitalist to admit the patient. Heart Score: Risk Factors: Risk Factors: DM, Current or recent (<one month) smoker, HTN, HLP, family history of CAD, obesity. Risk Scores: Score 0 - 3: 2.5% MACE over next 6 weeks - Discharge Home Score 4 - 6: 20.3% MACE over next 6 weeks - Admit for Clinical Observation Score 7 - 10: 72.7% MACE over next 6 weeks - Early Invasive Strategies Allergies: Allergies: Allergies Coded Allergies Type Severity Reaction Last Updated Verified amoxicillin Allergy Intermediate RASH 01/16/18 Yes Physical Exam: PE: Constitutional: Well developed, well nourished, no acute distress, non-toxic appearance. [] HENT: Normocephalic, atraumatic, bilateral external ears normal, oropharynx moist, no oral exudates, nose normal. [] Eyes: PERRLA, EOMI, conjunctiva normal, no discharge. [] Neck: Normal range of motion, no tenderness, supple, no stridor. [] Cardiovascular:Heart rate regular rhythm, no murmur [] Lungs & Thorax: Bilateral breath sounds clear to auscultation [] Abdomen: Bowel sounds normal, soft, no tenderness, no masses, no pulsatile masses. [] Skin: Warm, dry, no erythema, no rash. [] Back: No tenderness, no CVA tenderness. [] Extremities: No tenderness, no cyanosis, no clubbing, ROM intact, no edema. [] Neurologic: Alert and oriented X 3, normal motor function, normal sensory function, no focal deficits noted. [] Psychologic: Affect normal, judgement normal, mood normal. [] EKG: EKG: EKG shows sinus tachycardia. ST segments congruent. Not suggestive of acute ischemia. Radiology/Procedures: Radiology/Procedures: [] Course & Med Decision Making: Course & Med Decision Making Pertinent Labs and Imaging studies reviewed. (See chart for details) [] Dragon Disclaimer: Dragon Disclaimer: This electronic medical record was generated, in whole or in part, using a voice recognition dictation system. Departure Departure Impression: Primary Impression: Hypertensive emergency Disposition: ADMITTED INPATIENT Admitting Physician: HEMANT Condition: STABLE Referrals: NO PCP (PCP) Justicifation of Admission Dx: Justifications for Admission: Justification of Admission Dx: Yes Hypertension: Unstable Variant AMIE CAMPOS MD Jan 10, 2020 12:45
[2020-01-10] MEDS ORDERED: LABETALOL 20 MG/4 ML DISP.SYRIN. IVP ONE (13:45)
[2020-01-10 14:09] LABS: BASO % 1 % (0-3); EOS # 0.1 x10^3/uL (0.0-0.7); EOS % 2 % (0-3); HEMATOCRIT 47.3 % (36.0-47.0); HEMOGLOBIN 16.3 g/dL (12.0-15.5); LYMPH # 1.7 x10^3/uL (1.0-4.8); LYMPH % 18 % (24-48); MEAN CORPUSCULAR HEMOGLOBIN 29 pg (25-35); MEAN CORPUSCULAR HGB CONC 35 g/dL (31-37); MEAN CORPUSCULAR VOLUME 83 fL (79-100); MONO # 0.6 x10^3/uL (0.0-1.1); MONO % 7 % (0-9); NEUT # 6.9 x10^3/uL (1.8-7.7); NEUT % 74 % (31-73); PLATELET COUNT 236 x10^3/uL (140-400); RED BLOOD COUNT 5.67 x10^6/uL (3.50-5.40); RED CELL DISTRIBUTION WIDTH 14.2 % (11.5-14.5); WHITE BLOOD COUNT 9.5 x10^3/uL (4.0-11.0)
[2020-01-10 14:28] LABS: CREATININE 1.2 mg/dL (0.6-1.0); GFR 56.2; POTASSIUM 4.2 mmol/L (3.5-5.1)
[2020-01-10 14:35] LABS: ALBUMIN 3.9 g/dL (3.4-5.0); DIRECT BILIRUBIN 0.1 mg/dL (0.0-0.2); TOTAL BILIRUBIN 0.5 mg/dL (0.2-1.0)
[2020-01-10] MEDS ORDERED: IV NORMAL SALINE 1000ML BAG 1,000 ML IV ONE (15:30)
[2020-01-10 16:10] VITALS: BP 174/102
--- NOTE | 2020-01-10 17:13 | PDOC1 ---
History and Physical Date of Service: DOS: DATE: 01/10/20 TIME: 16:58 Chief Complaint: Chief Complain: some chest discomfort and dyspnea History of Present Illness: HPI: 55-year-old female presenting the emergency department today with complaints of chest discomfort and some problems breathing for since Monday. Today has gotten worse. She knows she has a history of hypertension in which she knows that she has not been really taking care of herself. She reports having chronic hypertension having been prescribed medication by an ER doctor before and taking it and then running out of the medication never getting follow-up and not being treated. She denies chest pain or shortness of breath. She does have a mild headache. Her work is concerned for her and so sent her into the emergency department to be treated/medical screening exam. Review of systems negative for abdominal pain vomiting fevers chills decreased urine output chest pain shortness of breath or extremity numbness weakness or tingling. She denies facial droop or slurred speech. All other review of systems negative. ED course: 55-year-old female presenting with hypertension without symptoms. Initially blood pressure was significantly high. Blood pressure came down with labetalol well. Patient remains asymptomatic. Labs are remarkable for creatinine of 1.2. This is elevated from previous. Suggestive of acute kidney injury secondary to hypertensive emergency. On reexamination the patient's blood pressure is come down. We will admit the patient for IV fluids and continued management of the patient's blood pressure. We will speak with the hospitalist to admit the patient. Past Medical/Surgical History: PMH/PSH: Past Medical History: Hypertension, Hx of HEART MURMUR Past Surgical History: removal of blood clot in the forehead Allergies: Allergies: Coded Allergies: amoxicillin (Verified Allergy, Intermediate, RASH, 01/16/18) Family History: Family History: Reviewed and none reported Social History: Social History: Smoking Status: Current Every Day Smoker Alcohol Use: Occasionally Drug Use: None Current Medications: Current Medications Current Medications Labetalol HCl (Normodyne Iv Push) 10 mg 1X ONCE IVP Last administered on 01/10/20at 13:45; Start 01/10/20 at 13:45; Stop 01/10/20 at 13:46; Status DC Sodium Chloride 1,000 ml @ 1,000 mls/hr 1X ONCE IV Last administered on 01/10/20at 15:39; Start 01/10/20 at 15:30; Stop 01/10/20 at 16:29; Status DC Amlodipine Besylate (Norvasc) 10 mg DAILY PO ; Start 01/10/20 at 17:00 Active Scripts Active Cipro (Ciprofloxacin Hcl) 500 Mg Tablet 1 Tab PO BID Robaxin (Methocarbamol) 500 Mg Tablet 1 Tab PO BID Diclofenac Sodium 50 Mg Tablet.dr 1 Tab PO BID Medrol (Methylprednisolone) 4 Mg Tab.ds.pk 1 Pkg PO UD Hydrochlorothiazide Tablet (Hydrochlorothiazide) 12.5 Mg Tablet 12.5 Mg PO DAILY Bactrim Ds Tablet (Sulfamethoxazole/Trimethoprim) 1 Each Tablet 1 Tab PO BID Keflex (Cephalexin) 500 Mg Capsule 500 Mg PO TID 7 Days Peridex (Chlorhexidine Gluconate) 15 Ml Mouthwash 15 Ml PO BID Prednisone 20 Mg Tablet 2 Tab PO DAILY Start on Mon01/17/18 [place] 5-325 Tablet (Acetaminophen/Hydrocodone Bitart) 1 Each Tablet 1 Tab PO PRN Q6HRS PRN Clindamycin Hcl 300 Mg Capsule 1 Cap PO TID Hydrochlorothiazide Tablet (Hydrochlorothiazide) 25 Mg Tablet 1 Tab PO DAILY [place] 5-325 Tablet (Acetaminophen/Hydrocodone Bitart) 1 Each Tablet 1 Tab PO TID Medrol (Methylprednisolone) 4 Mg Tab.ds.pk 1 Pkg PO UD ROS: Review of Systems Review of System REVIEW OF SYSTEMS: GENERAL: Denies weakness SKIN: No bruising, hair changes or rashes. EYES: No blurred, double or loss of vision. NOSE AND THROAT: No history of nosebleeds, hoarseness or sore throat. HEART: No history of palpitations, chest pain or shortness of breath on exertion. LUNGS: Denies cough, hemoptysis, wheezing or shortness of breath. GASTROINTESTINAL: Denies changes in appetite, nausea, vomiting, diarrhea or constipation. GENITOURINARY: No history of frequency, urgency, hesitancy or nocturia. NEUROLOGIC: Denies history of numbness, tingling, or tremor. PSYCHIATRIC: No history of panic, anxiety or depression. ENDOCRINE: No history of heat or cold intolerance, polyuria or polydipsia. EXTREMITIES: Denies joint pain, pain on walking or stiffness. Physical Exam: Vital Signs: Vital Signs Date Time Temp Pulse Resp B/P (MAP) Pulse Ox O2 Delivery O2 Flow Rate FiO2 01/10/20 16:10 98.5 82 19 174/102 (126) 97 Room Air 98.5 Physcial Exam: GEN: No apparent distress. Alert and oriented HEENT: Normal cephalic, atraumatic, external auditory canals are patent EYES: Extraocular muscles are intact, pupil are equally round and reactive to light and accommodation MUSCULOSKELETAL: Well developed , well nourished, good range of motion ENDOCRINE: No thyromegaly was palpated LYMPHATICS: No cervical chain or axillary nodes were noted HEMATOPOIETIC: No bruising NECK: Supple, no JVD, no thyromegaly was noted LUNGS: Clear to auscultation in all lung warren without rhonchi or wheezing HEART: RRR, S!, S2 present. Peripheral pulses intact, no obvious murmurs noted ABDOMEN: Soft, nontender. Positive bowel sounds, no organomegaly, normal bowel sounds EXTREMITIES: Without clubbing, cyanosis, or edema. Pedal pulses intact. Negative Homans sign NEUROLOGIC: Normal speech and tone. A&O x 3, moves all extremities, no obvious focal deficits PSYCHIATRIC: Normal affect, normal mood. Stable SKIN: No ulcerations or rashes, good skin turgor, no jaundice VASCULAR: Good capillary refill, neurovascular bundle appears to be intact Labs: Labs: Laboratory Tests Test 01/10/20 13:55 White Blood Count 9.5 x10^3/uL (4.0-11.0) Red Blood Count 5.67 x10^6/uL (3.50-5.40) Hemoglobin 16.3 g/dL (12.0-15.5) Hematocrit 47.3 % (36.0-47.0) Mean Corpuscular Volume 83 fL (79-100) Mean Corpuscular Hemoglobin 29 pg (25-35) Mean Corpuscular Hemoglobin Concent 35 g/dL (31-37) Red Cell Distribution Width 14.2 % (11.5-14.5) Platelet Count 236 x10^3/uL (140-400) Neutrophils (%) (Auto) 74 % (31-73) Lymphocytes (%) (Auto) 18 % (24-48) Monocytes (%) (Auto) 7 % (0-9) Eosinophils (%) (Auto) 2 % (0-3) Basophils (%) (Auto) 1 % (0-3) Neutrophils # (Auto) 6.9 x10^3/uL (1.8-7.7) Lymphocytes # (Auto) 1.7 x10^3/uL (1.0-4.8) Monocytes # (Auto) 0.6 x10^3/uL (0.0-1.1) Eosinophils # (Auto) 0.1 x10^3/uL (0.0-0.7) Basophils # (Auto) 0.0 x10^3/uL (0.0-0.2) Sodium Level 139 mmol/L (136-145) Potassium Level 4.2 mmol/L (3.5-5.1) Chloride Level 105 mmol/L (98-107) Carbon Dioxide Level 29 mmol/L (21-32) Anion Gap 5 (6-14) Blood Urea Nitrogen 19 mg/dL (7-20) Creatinine 1.2 mg/dL (0.6-1.0) Estimated GFR (Cockcroft-Gault) 56.2 Glucose Level 82 mg/dL (70-99) Calcium Level 10.0 mg/dL (8.5-10.1) Total Bilirubin 0.5 mg/dL (0.2-1.0) Direct Bilirubin 0.1 mg/dL (0.0-0.2) Aspartate Amino Transf (AST/SGOT) 23 U/L (15-37) Alanine Aminotransferase (ALT/SGPT) 23 U/L (14-59) Alkaline Phosphatase 117 U/L (46-116) Troponin I Quantitative < 0.017 ng/mL (0.000-0.055) Total Protein 8.0 g/dL (6.4-8.2) Albumin 3.9 g/dL (3.4-5.0) Lipase 171 U/L (73-393) Laboratory Tests Test 01/10/20 13:55 White Blood Count 9.5 x10^3/uL (4.0-11.0) Red Blood Count 5.67 x10^6/uL (3.50-5.40) Hemoglobin 16.3 g/dL (12.0-15.5) Hematocrit 47.3 % (36.0-47.0) Mean Corpuscular Volume 83 fL (79-100) Mean Corpuscular Hemoglobin 29 pg (25-35) Mean Corpuscular Hemoglobin Concent 35 g/dL (31-37) Red Cell Distribution Width 14.2 % (11.5-14.5) Platelet Count 236 x10^3/uL (140-400) Neutrophils (%) (Auto) 74 % (31-73) Lymphocytes (%) (Auto) 18 % (24-48) Monocytes (%) (Auto) 7 % (0-9) Eosinophils (%) (Auto) 2 % (0-3) Basophils (%) (Auto) 1 % (0-3) Neutrophils # (Auto) 6.9 x10^3/uL (1.8-7.7) Lymphocytes # (Auto) 1.7 x10^3/uL (1.0-4.8) Monocytes # (Auto) 0.6 x10^3/uL (0.0-1.1) Eosinophils # (Auto) 0.1 x10^3/uL (0.0-0.7) Basophils # (Auto) 0.0 x10^3/uL (0.0-0.2) Sodium Level 139 mmol/L (136-145) Potassium Level 4.2 mmol/L (3.5-5.1) Chloride Level 105 mmol/L (98-107) Carbon Dioxide Level 29 mmol/L (21-32) Anion Gap 5 (6-14) Blood Urea Nitrogen 19 mg/dL (7-20) Creatinine 1.2 mg/dL (0.6-1.0) Estimated GFR (Cockcroft-Gault) 56.2 Glucose Level 82 mg/dL (70-99) Calcium Level 10.0 mg/dL (8.5-10.1) Total Bilirubin 0.5 mg/dL (0.2-1.0) Direct Bilirubin 0.1 mg/dL (0.0-0.2) Aspartate Amino Transf (AST/SGOT) 23 U/L (15-37) Alanine Aminotransferase (ALT/SGPT) 23 U/L (14-59) Alkaline Phosphatase 117 U/L (46-116) Troponin I Quantitative < 0.017 ng/mL (0.000-0.055) Total Protein 8.0 g/dL (6.4-8.2) Albumin 3.9 g/dL (3.4-5.0) Lipase 171 U/L (73-393) Images: Images No images obtained Assessment/Plan Assessment/Plan Hypertensive emergency LEANNA due to vasomotor nephropathy related to hypertension Polycythemia likely reactive due to chronic tobacco use Tobacco use History of heart murmur Admit to medicine for further management Avoid nephrotoxic agents Amlodipine for blood pressure control Labetalol IV and hydralazine p.o. for systolic blood pressure greater than 180 Serial neuro checks every 6 hours Strict I's and O's Pending nephrology consult Pending UA to measure for microalbumin Pending UDS Pending echocardiogram for history of heart murmur Heparin for DVT prophylaxis ADA diet Full code Discussed with RN and SW Disposition pending nephro evaluation Surrogate decision maker is undesignated Smoking cessation: Total time spent was > 12 minutes in face to face counseling. Patient has agreed to Varnicline when discharged Justifications for Admission Other Justification FLORIN HAMM MD Jan 10, 2020 17:13
[2020-01-10] MEDS ORDERED: DEXTROSE 50% 25 GM / 50ML DISP.SYRIN. IV PRN (17:15)
[2020-01-10] MEDS ORDERED: NITROGLYCERIN SUBLINGUAL 0.4 MG BOTTLE OF 25. SL PRN (17:15)
[2020-01-10] MEDS ORDERED: POTASSIUM CHLORIDE 10MEQ 100 ML IV PRN (17:15)
[2020-01-10] MEDS ORDERED: DOCUSATE SODIUM 100 MG CAPSULE. PO PRN (17:15)
[2020-01-10] MEDS ORDERED: POTASSIUM CHLORIDE 10MEQ 100 ML IV SCH (17:15)
[2020-01-10] MEDS ORDERED: ONDANSETRON PF 4 MG/2 ML VIAL. IVP PRN (17:15)
[2020-01-10] MEDS ORDERED: POTASSIUM CHLORIDE 20 MEQ TABLET.ER. PO PRN (17:15)
[2020-01-10] MEDS ORDERED: MAGNESIUM SULFATE 2GM 50 ML IV SCH (17:15)
[2020-01-10] MEDS ORDERED: SENNOSIDES 8.6 MG TABLET PO PRN (17:15)
[2020-01-10] MEDS ORDERED: ELECTROLYTE (NON-ICU) PROTOCOL MC PRN (17:15)
[2020-01-10] MEDS: amLODIPine BESYLATE 10 MG TABLET PO SCH (17:22)
[2020-01-10] MEDS: VARENICLINE 0.5 MG TABLET. PO SCH (17:24)
[2020-01-10 19:10] VITALS: BP 148/81
[2020-01-10] MEDS ORDERED: LABETALOL 20 MG/4 ML DISP.SYRIN. IVP PRN (19:30)
[2020-01-10] MEDS ORDERED: MAGNESIUM OXIDE 400 MG TABLET PO SCH (21:00)
[2020-01-10 23:00] VITALS: BP 136/86
[2020-01-11 02:52] VITALS: BP 128/82
[2020-01-11 07:00] VITALS: BP 155/99
[2020-01-11 07:21] LABS: BASO % 0 % (0-3); EOS # 0.1 x10^3/uL (0.0-0.7); EOS % 2 % (0-3); HEMATOCRIT 45.6 % (36.0-47.0); HEMOGLOBIN 15.6 g/dL (12.0-15.5); LYMPH # 1.3 x10^3/uL (1.0-4.8); LYMPH % 17 % (24-48); MEAN CORPUSCULAR HEMOGLOBIN 29 pg (25-35); MEAN CORPUSCULAR HGB CONC 34 g/dL (31-37); MEAN CORPUSCULAR VOLUME 84 fL (79-100); MONO # 0.6 x10^3/uL (0.0-1.1); MONO % 7 % (0-9); NEUT % 74 % (31-73); PLATELET COUNT 223 x10^3/uL (140-400); RED BLOOD COUNT 5.45 x10^6/uL (3.50-5.40); RED CELL DISTRIBUTION WIDTH 13.9 % (11.5-14.5); WHITE BLOOD COUNT 8.1 x10^3/uL (4.0-11.0)
[2020-01-11 07:39] LABS: CALCIUM 9.3 mg/dL (8.5-10.1); CREATININE 0.9 mg/dL (0.6-1.0); GFR 78.4; POTASSIUM 4.1 mmol/L (3.5-5.1)
[2020-01-11 07:40] LABS: MAGNESIUM 2.3 mg/dL (1.8-2.4); PHOSPHORUS 3.5 mg/dL (2.6-4.7)
[2020-01-11 09:15] LABS: BILIRUBIN,URINE NEGATIVE (NEG); CLARITY,URINE CLEAR; COLOR,URINE YELLOW; NITRITE,URINE NEGATIVE (NEG); PROTEIN,URINE NEGATIVE (NEG-TRACE)
[2020-01-11 09:20] LABS: BACTERIA,URINE MANY /HPF (0-FEW); SQUAMOUS EPITHELIAL CELL,UR FEW /LPF; WBC,URINE 20-40 /HPF (0-4)
[2020-01-11 09:21] LABS: BARBITURATES NEG (NEG); BENZODIAZEPINES NEG (NEG); CANNABINOIDS NEG (NEG); COCAINE NEG (NEG); METHADONE NEG (NEG); OPIATES NEG (NEG); PHENCYCLIDINE NEG (NEG)
[2020-01-11 09:23] LABS: AMPHETAMINE/METHAMPHETAMINE NEG (NEG)
[2020-01-11] MEDS: VARENICLINE 0.5 MG TABLET. PO SCH (10:25)
[2020-01-11] MEDS: amLODIPine BESYLATE 10 MG TABLET PO SCH (10:25)
[2020-01-11 11:00] VITALS: BP 162/84
[2020-01-11] MEDS ORDERED: HYDR-2145 PO (11:18)
[2020-01-11] MEDS ORDERED: AMLO10TA8 PO (11:18)
[2020-01-11] MEDS ORDERED: NITR100C6 PO (11:18)
--- NOTE | 2020-01-11 11:25 | PDOC ---
GENERAL General: Discharge summary [id number] VITAL SIGNS Vital Signs/I&O: Vital Signs Date Time Temp Pulse Resp B/P (MAP) Pulse Ox O2 Delivery O2 Flow Rate FiO2 01/11/20 11:00 98.4 75 18 162/84 (110) 95 Room Air 98.4 I & O 01/10/20 01/10/20 01/11/20 15:00 23:00 07:00 Intake Total 750 ml 0 ml Output Total 500 ml Balance 750 ml -500 ml ALLERGIES Allergies: Allergies Coded Allergies Type Severity Reaction Last Updated Verified amoxicillin Allergy Intermediate RASH 01/16/18 Yes MEDS Medications: Current Medications Medications (Trade) Dose Ordered Sig/Mildred Route PRN Reason Start Time Stop Time Status Last Admin Dose Admin Labetalol HCl (Normodyne Iv Push) 10 mg 1X ONCE IVP 01/10/20 13:45 01/10/20 13:46 DC 01/10/20 13:45 Sodium Chloride 1,000 ml @ 1,000 mls/hr 1X ONCE IV 01/10/20 15:30 01/10/20 16:29 DC 01/10/20 15:39 Amlodipine Besylate (Norvasc) 10 mg DAILY PO 01/10/20 17:00 01/11/20 10:25 Varenicline (Chantix) 0.5 mg DAILY PO 01/10/20 18:00 01/12/20 09:01 01/11/20 10:25 LAB Lab: Laboratory Tests Test 01/10/20 13:55 01/11/20 06:10 01/11/20 06:20 White Blood Count 9.5 x10^3/uL (4.0-11.0) 8.1 x10^3/uL (4.0-11.0) Red Blood Count 5.67 x10^6/uL (3.50-5.40) H 5.45 x10^6/uL (3.50-5.40) H Hemoglobin 16.3 g/dL (12.0-15.5) H 15.6 g/dL (12.0-15.5) H Hematocrit 47.3 % (36.0-47.0) H 45.6 % (36.0-47.0) Mean Corpuscular Volume 83 fL (79-100) 84 fL (79-100) Mean Corpuscular Hemoglobin 29 pg (25-35) 29 pg (25-35) Mean Corpuscular Hemoglobin Concent 35 g/dL (31-37) 34 g/dL (31-37) Red Cell Distribution Width 14.2 % (11.5-14.5) 13.9 % (11.5-14.5) Platelet Count 236 x10^3/uL (140-400) 223 x10^3/uL (140-400) Neutrophils (%) (Auto) 74 % (31-73) H 74 % (31-73) H Lymphocytes (%) (Auto) 18 % (24-48) L 17 % (24-48) L Monocytes (%) (Auto) 7 % (0-9) 7 % (0-9) Eosinophils (%) (Auto) 2 % (0-3) 2 % (0-3) Basophils (%) (Auto) 1 % (0-3) 0 % (0-3) Neutrophils # (Auto) 6.9 x10^3/uL (1.8-7.7) 6.0 x10^3/uL (1.8-7.7) Lymphocytes # (Auto) 1.7 x10^3/uL (1.0-4.8) 1.3 x10^3/uL (1.0-4.8) Monocytes # (Auto) 0.6 x10^3/uL (0.0-1.1) 0.6 x10^3/uL (0.0-1.1) Eosinophils # (Auto) 0.1 x10^3/uL (0.0-0.7) 0.1 x10^3/uL (0.0-0.7) Basophils # (Auto) 0.0 x10^3/uL (0.0-0.2) 0.0 x10^3/uL (0.0-0.2) Sodium Level 139 mmol/L (136-145) 142 mmol/L (136-145) Potassium Level 4.2 mmol/L (3.5-5.1) 4.1 mmol/L (3.5-5.1) Chloride Level 105 mmol/L (98-107) 109 mmol/L (98-107) H Carbon Dioxide Level 29 mmol/L (21-32) 24 mmol/L (21-32) Anion Gap 5 (6-14) L 9 (6-14) Blood Urea Nitrogen 19 mg/dL (7-20) 17 mg/dL (7-20) Creatinine 1.2 mg/dL (0.6-1.0) H 0.9 mg/dL (0.6-1.0) Estimated GFR (Cockcroft-Gault) 56.2 78.4 Glucose Level 82 mg/dL (70-99) 86 mg/dL (70-99) Calcium Level 10.0 mg/dL (8.5-10.1) 9.3 mg/dL (8.5-10.1) Total Bilirubin 0.5 mg/dL (0.2-1.0) Direct Bilirubin 0.1 mg/dL (0.0-0.2) Aspartate Amino Transferase (AST) 23 U/L (15-37) Alanine Aminotransferase (ALT) 23 U/L (14-59) Alkaline Phosphatase 117 U/L (46-116) H Troponin I Quantitative < 0.017 ng/mL (0.000-0.055) Total Protein 8.0 g/dL (6.4-8.2) Albumin 3.9 g/dL (3.4-5.0) Lipase 171 U/L (73-393) Phosphorus Level 3.5 mg/dL (2.6-4.7) Magnesium Level 2.3 mg/dL (1.8-2.4) Urine Collection Type Unknown Urine Color Yellow Urine Clarity Clear Urine pH 7.0 (<5.0-8.0) Urine Specific [place] 1.010 (1.000-1.030) Urine Protein Negative mg/dL (NEG-TRACE) Urine Glucose (UA) Negative mg/dL (NEG) Urine Ketones (Stick) Negative mg/dL (NEG) Urine Blood Trace (NEG) Urine Nitrite Negative (NEG) Urine Bilirubin Negative (NEG) Urine Urobilinogen Dipstick 1.0 mg/dL (0.2 mg/dL) Urine Leukocyte Esterase Large (NEG) Urine RBC 3-5 /HPF (0-2) Urine WBC 20-40 /HPF (0-4) Urine Squamous Epithelial Cells Few /LPF Urine Bacteria Many /HPF (0-FEW) Urine Mucus Slight /LPF Urine Opiates Screen Neg (NEG) Urine Methadone Screen Neg (NEG) Urine Barbiturates Neg (NEG) Urine Phencyclidine Screen Neg (NEG) Urine Amphetamine/Methamphetamine Neg (NEG) Urine Benzodiazepines Screen Neg (NEG) Urine Cocaine Screen Neg (NEG) Urine Cannabinoids Screen Neg (NEG) Urine Ethyl Alcohol Neg (NEG) Laboratory Tests 01/10/20 13:55 01/11/20 06:10 Laboratory Tests 01/10/20 13:55 01/11/20 06:10 Justifications for Admission Other Justification HTN emergency ZACK VALADEZ MD Jan 11, 2020 11:25
[2020-01-11] MEDS ORDERED: ACETAMINOPHEN 325 MG TABLET. PO ONE (11:45)
[2020-01-11] MEDS ORDERED: NITROFURANTOIN MONOHYD/M-CRYST 100 MG CAPSULE. PO SCH (12:00)
--- NOTE | 2020-01-11 12:10 | PDOC ---
PROGRESS NOTES Date of Service DATE: 01/11/20 TIME: 12:09 Subjective Subjective GFR currently greater than 60. Creatinine improved to 0.9 this morning. No known history of CKD. Defer blood pressure management to primary team. Hence no formal consult was done. Please call with questions concerns Objective Objective Vital Signs Date Time Temp Pulse Resp B/P (MAP) Pulse Ox O2 Delivery O2 Flow Rate FiO2 01/11/20 11:00 98.4 75 18 162/84 (110) 95 Room Air 98.4 Intake and Output 01/11/20 07:00 Intake Total 750 ml Output Total 500 ml Balance 250 ml Intake Oral 750 ml Output Urine Total 500 ml # Voids 3 Assessment Assessment Problems Medical Problems: (1) Hypertensive emergency Status: Acute Comment Review of Relevant I have reviewed the following items graham (where applicable) has been applied. Labs Laboratory Tests Test 01/10/20 13:55 01/11/20 06:10 01/11/20 06:20 White Blood Count 9.5 x10^3/uL (4.0-11.0) 8.1 x10^3/uL (4.0-11.0) Red Blood Count 5.67 x10^6/uL (3.50-5.40) 5.45 x10^6/uL (3.50-5.40) Hemoglobin 16.3 g/dL (12.0-15.5) 15.6 g/dL (12.0-15.5) Hematocrit 47.3 % (36.0-47.0) 45.6 % (36.0-47.0) Mean Corpuscular Volume 83 fL (79-100) 84 fL (79-100) Mean Corpuscular Hemoglobin 29 pg (25-35) 29 pg (25-35) Mean Corpuscular Hemoglobin Concent 35 g/dL (31-37) 34 g/dL (31-37) Red Cell Distribution Width 14.2 % (11.5-14.5) 13.9 % (11.5-14.5) Platelet Count 236 x10^3/uL (140-400) 223 x10^3/uL (140-400) Neutrophils (%) (Auto) 74 % (31-73) 74 % (31-73) Lymphocytes (%) (Auto) 18 % (24-48) 17 % (24-48) Monocytes (%) (Auto) 7 % (0-9) 7 % (0-9) Eosinophils (%) (Auto) 2 % (0-3) 2 % (0-3) Basophils (%) (Auto) 1 % (0-3) 0 % (0-3) Neutrophils # (Auto) 6.9 x10^3/uL (1.8-7.7) 6.0 x10^3/uL (1.8-7.7) Lymphocytes # (Auto) 1.7 x10^3/uL (1.0-4.8) 1.3 x10^3/uL (1.0-4.8) Monocytes # (Auto) 0.6 x10^3/uL (0.0-1.1) 0.6 x10^3/uL (0.0-1.1) Eosinophils # (Auto) 0.1 x10^3/uL (0.0-0.7) 0.1 x10^3/uL (0.0-0.7) Basophils # (Auto) 0.0 x10^3/uL (0.0-0.2) 0.0 x10^3/uL (0.0-0.2) Sodium Level 139 mmol/L (136-145) 142 mmol/L (136-145) Potassium Level 4.2 mmol/L (3.5-5.1) 4.1 mmol/L (3.5-5.1) Chloride Level 105 mmol/L (98-107) 109 mmol/L (98-107) Carbon Dioxide Level 29 mmol/L (21-32) 24 mmol/L (21-32) Anion Gap 5 (6-14) 9 (6-14) Blood Urea Nitrogen 19 mg/dL (7-20) 17 mg/dL (7-20) Creatinine 1.2 mg/dL (0.6-1.0) 0.9 mg/dL (0.6-1.0) Estimated GFR (Cockcroft-Gault) 56.2 78.4 Glucose Level 82 mg/dL (70-99) 86 mg/dL (70-99) Calcium Level 10.0 mg/dL (8.5-10.1) 9.3 mg/dL (8.5-10.1) Total Bilirubin 0.5 mg/dL (0.2-1.0) Direct Bilirubin 0.1 mg/dL (0.0-0.2) Aspartate Amino Transf (AST/SGOT) 23 U/L (15-37) Alanine Aminotransferase (ALT/SGPT) 23 U/L (14-59) Alkaline Phosphatase 117 U/L (46-116) Troponin I Quantitative < 0.017 ng/mL (0.000-0.055) Total Protein 8.0 g/dL (6.4-8.2) Albumin 3.9 g/dL (3.4-5.0) Lipase 171 U/L (73-393) Phosphorus Level 3.5 mg/dL (2.6-4.7) Magnesium Level 2.3 mg/dL (1.8-2.4) Urine Collection Type Unknown Urine Color Yellow Urine Clarity Clear Urine pH 7.0 (<5.0-8.0) Urine Specific [place] 1.010 (1.000-1.030) Urine Protein Negative mg/dL (NEG-TRACE) Urine Glucose (UA) Negative mg/dL (NEG) Urine Ketones (Stick) Negative mg/dL (NEG) Urine Blood Trace (NEG) Urine Nitrite Negative (NEG) Urine Bilirubin Negative (NEG) Urine Urobilinogen Dipstick 1.0 mg/dL (0.2 mg/dL) Urine Leukocyte Esterase Large (NEG) Urine RBC 3-5 /HPF (0-2) Urine WBC 20-40 /HPF (0-4) Urine Squamous Epithelial Cells Few /LPF Urine Bacteria Many /HPF (0-FEW) Urine Mucus Slight /LPF Urine Opiates Screen Neg (NEG) Urine Methadone Screen Neg (NEG) Urine Barbiturates Neg (NEG) Urine Phencyclidine Screen Neg (NEG) Urine Amphetamine/Methamphetamine Neg (NEG) Urine Benzodiazepines Screen Neg (NEG) Urine Cocaine Screen Neg (NEG) Urine Cannabinoids Screen Neg (NEG) Urine Ethyl Alcohol Neg (NEG) Laboratory Tests Test 01/10/20 13:55 01/11/20 06:10 01/11/20 06:20 White Blood Count 9.5 x10^3/uL (4.0-11.0) 8.1 x10^3/uL (4.0-11.0) Red Blood Count 5.67 x10^6/uL (3.50-5.40) 5.45 x10^6/uL (3.50-5.40) Hemoglobin 16.3 g/dL (12.0-15.5) 15.6 g/dL (12.0-15.5) Hematocrit 47.3 % (36.0-47.0) 45.6 % (36.0-47.0) Mean Corpuscular Volume 83 fL (79-100) 84 fL (79-100) Mean Corpuscular Hemoglobin 29 pg (25-35) 29 pg (25-35) Mean Corpuscular Hemoglobin Concent 35 g/dL (31-37) 34 g/dL (31-37) Red Cell Distribution Width 14.2 % (11.5-14.5) 13.9 % (11.5-14.5) Platelet Count 236 x10^3/uL (140-400) 223 x10^3/uL (140-400) Neutrophils (%) (Auto) 74 % (31-73) 74 % (31-73) Lymphocytes (%) (Auto) 18 % (24-48) 17 % (24-48) Monocytes (%) (Auto) 7 % (0-9) 7 % (0-9) Eosinophils (%) (Auto) 2 % (0-3) 2 % (0-3) Basophils (%) (Auto) 1 % (0-3) 0 % (0-3) Neutrophils # (Auto) 6.9 x10^3/uL (1.8-7.7) 6.0 x10^3/uL (1.8-7.7) Lymphocytes # (Auto) 1.7 x10^3/uL (1.0-4.8) 1.3 x10^3/uL (1.0-4.8) Monocytes # (Auto) 0.6 x10^3/uL (0.0-1.1) 0.6 x10^3/uL (0.0-1.1) Eosinophils # (Auto) 0.1 x10^3/uL (0.0-0.7) 0.1 x10^3/uL (0.0-0.7) Basophils # (Auto) 0.0 x10^3/uL (0.0-0.2) 0.0 x10^3/uL (0.0-0.2) Sodium Level 139 mmol/L (136-145) 142 mmol/L (136-145) Potassium Level 4.2 mmol/L (3.5-5.1) 4.1 mmol/L (3.5-5.1) Chloride Level 105 mmol/L (98-107) 109 mmol/L (98-107) Carbon Dioxide Level 29 mmol/L (21-32) 24 mmol/L (21-32) Anion Gap 5 (6-14) 9 (6-14) Blood Urea Nitrogen 19 mg/dL (7-20) 17 mg/dL (7-20) Creatinine 1.2 mg/dL (0.6-1.0) 0.9 mg/dL (0.6-1.0) Estimated GFR (Cockcroft-Gault) 56.2 78.4 Glucose Level 82 mg/dL (70-99) 86 mg/dL (70-99) Calcium Level 10.0 mg/dL (8.5-10.1) 9.3 mg/dL (8.5-10.1) Total Bilirubin 0.5 mg/dL (0.2-1.0) Direct Bilirubin 0.1 mg/dL (0.0-0.2) Aspartate Amino Transf (AST/SGOT) 23 U/L (15-37) Alanine Aminotransferase (ALT/SGPT) 23 U/L (14-59) Alkaline Phosphatase 117 U/L (46-116) Troponin I Quantitative < 0.017 ng/mL (0.000-0.055) Total Protein 8.0 g/dL (6.4-8.2) Albumin 3.9 g/dL (3.4-5.0) Lipase 171 U/L (73-393) Phosphorus Level 3.5 mg/dL (2.6-4.7) Magnesium Level 2.3 mg/dL (1.8-2.4) Urine Collection Type Unknown Urine Color Yellow Urine Clarity Clear Urine pH 7.0 (<5.0-8.0) Urine Specific [place] 1.010 (1.000-1.030) Urine Protein Negative mg/dL (NEG-TRACE) Urine Glucose (UA) Negative mg/dL (NEG) Urine Ketones (Stick) Negative mg/dL (NEG) Urine Blood Trace (NEG) Urine Nitrite Negative (NEG) Urine Bilirubin Negative (NEG) Urine Urobilinogen Dipstick 1.0 mg/dL (0.2 mg/dL) Urine Leukocyte Esterase Large (NEG) Urine RBC 3-5 /HPF (0-2) Urine WBC 20-40 /HPF (0-4) Urine Squamous Epithelial Cells Few /LPF Urine Bacteria Many /HPF (0-FEW) Urine Mucus Slight /LPF Urine Opiates Screen Neg (NEG) Urine Methadone Screen Neg (NEG) Urine Barbiturates Neg (NEG) Urine Phencyclidine Screen Neg (NEG) Urine Amphetamine/Methamphetamine Neg (NEG) Urine Benzodiazepines Screen Neg (NEG) Urine Cocaine Screen Neg (NEG) Urine Cannabinoids Screen Neg (NEG) Urine Ethyl Alcohol Neg (NEG) Medications Current Medications Labetalol HCl (Normodyne Iv Push) 10 mg 1X ONCE IVP Last administered on 01/10/20at 13:45; Start 01/10/20 at 13:45; Stop 01/10/20 at 13:46; Status DC Sodium Chloride 1,000 ml @ 1,000 mls/hr 1X ONCE IV Last administered on 01/10/20at 15:39; Start 01/10/20 at 15:30; Stop 01/10/20 at 16:29; Status DC Amlodipine Besylate (Norvasc) 10 mg DAILY PO Last administered on 01/11/20at 10:25; Start 01/10/20 at 17:00 Nitroglycerin (Nitrostat) 0.4 mg PRN Q5MIN PRN SL CHEST PAIN; Start 01/10/20 at 17:15 Sennosides (Senna) 17.2 mg PRN BID PRN PO CONSTIPATION; Start 01/10/20 at 17:15 Docusate Sodium (Colace) 100 mg PRN DAILY PRN PO HARD STOOLS; Start 01/10/20 at 17:15 Ondansetron HCl (Zofran) 4 mg PRN Q6HRS PRN IVP NAUSEA/VOMITING; Start 01/10/20 at 17:15 Potassium Chloride (Klor-Con) 40 meq 1X PRN PO PER PROTOCOL; Start 01/10/20 at 17:15; Status UNV Magnesium Oxide (Magnesium Oxide) 400 mg BID PO ; Start 01/10/20 at 21:00; Stop 01/12/20 at 09:01; Status UNV Potassium Chloride/Water 100 ml @ 100 mls/hr Q1H IV ; Start 01/10/20 at 17:15; Stop 01/10/20 at 21:14; Status UNV Magnesium Sulfate 50 ml @ 25 mls/hr Q24H IV ; Start 01/10/20 at 17:15; Stop 01/12/20 at 19:14; Status UNV Potassium Chloride/Water 100 ml @ 100 mls/hr Q1H PRN IV low k; Start 01/10/20 at 17:15; Status UNV Dextrose (Dextrose 50%-Water Syringe) 12.5 gm PRN Q15MIN PRN IV SEE COMMENTS; Start 01/10/20 at 17:15 Info (Non-Icu Electrolyte Protocol) 1 ea CONT PRN PRN MC SEE COMMENTS; Start 01/10/20 at 17:15 Varenicline (Chantix) 0.5 mg DAILY PO Last administered on 01/11/20at 10:25; Start 01/10/20 at 18:00; Stop 01/12/20 at 09:01 Varenicline (Chantix) 0.5 mg BID PO ; Start 01/13/20 at 09:00; Stop 01/16/20 at 21:30 Varenicline (Chantix) 1 mg BID PO ; Start 01/17/20 at 09:00 Labetalol HCl (Normodyne Iv Push) 20 mg PRN Q2HR PRN IVP HYPERTENSION; Start 01/10/20 at 19:30 Nitrofurantoin Macrocrystals (Macrobid) 100 mg BID PO ; Start 01/11/20 at 12:00 Acetaminophen (Tylenol) 650 mg 1X ONCE PO ; Start 01/11/20 at 11:45; Stop 01/11/20 at 11:46; Status DC Active Scripts Active Amlodipine Besylate 10 Mg Tablet 10 Mg PO DAILY 30 Days Nitrofurantoin [place]-Mcr 100 Mg (Nitrofurantoin Monohyd/M-Cryst) 100 Mg Capsule 100 Mg PO BID 5 Days Hydrochlorothiazide Tablet (Hydrochlorothiazide) 25 Mg Tablet 1 Tab PO DAILY 30 Days Cipro (Ciprofloxacin Hcl) 500 Mg Tablet 1 Tab PO BID Robaxin (Methocarbamol) 500 Mg Tablet 1 Tab PO BID Diclofenac Sodium 50 Mg Tablet.dr 1 Tab PO BID Medrol (Methylprednisolone) 4 Mg Tab.ds.pk 1 Pkg PO UD Hydrochlorothiazide Tablet (Hydrochlorothiazide) 12.5 Mg Tablet 12.5 Mg PO DAILY Bactrim Ds Tablet (Sulfamethoxazole/Trimethoprim) 1 Each Tablet 1 Tab PO BID Keflex (Cephalexin) 500 Mg Capsule 500 Mg PO TID 7 Days Peridex (Chlorhexidine Gluconate) 15 Ml Mouthwash 15 Ml PO BID Prednisone 20 Mg Tablet 2 Tab PO DAILY Start on Mon01/17/18 Pender 5-325 Tablet (Acetaminophen/Hydrocodone Bitart) 1 Each Tablet 1 Tab PO PRN Q6HRS PRN Clindamycin Hcl 300 Mg Capsule 1 Cap PO TID Pender 5-325 Tablet (Acetaminophen/Hydrocodone Bitart) 1 Each Tablet 1 Tab PO TID Medrol (Methylprednisolone) 4 Mg Tab.ds.pk 1 Pkg PO UD Vitals/I & O Vital Sign - Last 24 Hours 01/10/20 01/10/20 01/10/20 01/10/20 12:41 13:19 13:45 13:49 Temp 98.3 98.3 Pulse 98 92 79 86 Resp 18 18 18 B/P (MAP) 194/99 (130) 176/89 Pulse Ox 100 100 100 O2 Delivery Room Air 01/10/20 01/10/20 01/10/20 01/10/20 14:19 14:49 15:25 16:10 Temp 98.5 98.5 Pulse 82 84 81 82 Resp 18 18 16 19 B/P (MAP) 174/102 (126) Pulse Ox 100 100 100 97 O2 Delivery Room Air 01/10/20 01/10/20 01/10/20 01/10/20 17:22 19:10 19:40 23:00 Temp 98.0 98.0 98.0 98.0 Pulse 82 86 78 Resp 18 18 B/P (MAP) 174/102 148/81 (103) 136/86 (103) Pulse Ox 98 99 O2 Delivery Room Air Room Air Room Air 01/11/20 01/11/20 01/11/20 01/11/20 02:52 07:00 08:00 10:25 Temp 98.7 97.9 98.7 97.9 Pulse 70 79 79 Resp 18 18 B/P (MAP) 128/82 (97) 155/99 (117) 155/99 Pulse Ox 97 96 O2 Delivery Room Air Room Air Room Air 01/11/20 11:00 Temp 98.4 98.4 Pulse 75 Resp 18 B/P (MAP) 162/84 (110) Pulse Ox 95 O2 Delivery Room Air Intake and Output 01/10/20 01/10/20 01/11/20 15:00 23:00 07:00 Intake Total 750 ml 0 ml Output Total 500 ml Balance 750 ml -500 ml Justifications for Admission Other Justification HTN emergency MIKE MOFFETT MD Jan 11, 2020 12:10
--- NOTE | 2020-01-11 12:47 | DS ---
DATE OF DISCHARGE: HOSPITAL COURSE: This patient is a 55-year-old woman without a continuity source of primary care due to lack of insurance. 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 Today is hospital day 2 and she is feeling much improved. She was found to have hypertensive urgency with blood pressure on initial presentation 200/100. She was short of breath on initial evaluation, but felt that that was due to hyperventilation from her anxiety. Her presenting electrocardiogram was unremarkable other than tachycardia. Chest imaging was not done. I am seeing her this morning in the company of her . She feels ready for discharge and is hoping for a couple of more days of rest prior to return back to school. She will get herself into a community sliding scale clinic for closer monitoring, but she has also been found to have urinary tract infection and urine culture is pending. We will start her on 5 days of Macrobid until that is available. PHYSICAL EXAMINATION: VITAL SIGNS: This morning is notable for that the patient has been afebrile, blood pressure is in the 150s/90s even on reinitiation of amlodipine. She is breathing comfortably and saturating normally on room air. Heart rate is in the 70s. GENERAL: She is a pleasant 55-year-old woman, alert and oriented x 3, in no acute distress. HEENT: Unremarkable. CHEST: Clear to auscultation. HEART: S1, S2 normal. Regular rate and rhythm. No murmurs or gallops are noted. ABDOMEN: Soft, nontender, nondistended. No masses or organomegaly noted. EXTREMITIES: Unremarkable for acute abnormality. FINAL DIAGNOSES: 1. Hypertensive urgency in the setting of chronic untreated hypertension. She will initiate with primary care and follow more regularly. 2. Elevated creatinine on admission. after intravenous fluids and blood pressure treatment. She is now normal this morning. 2. Acute lower urinary tract infection with cultures pending. We are sending her home with Macrobid. 3. Chronic multimorbidity, otherwise as outlined in the history and physical. ZACK VALADEZ MD DR: Keven JOB#: [id number] / [id number] GIOD
--- NOTE | 2020-01-11 13:10 | NUR ---
Pt given education, prescriptions, and information on cardiac diet. IV discontinued by Farnaz SILVA. Pt ambulated with belongings, family member to main entrance by Katelynn SILVA.
[2020-01-13] MEDS ORDERED: VARENICLINE 0.5 MG TABLET. PO SCH (09:00)
--- NOTE | 2020-01-13 10:30 | EKG ---
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
[2020-01-17] MEDS ORDERED: VARENICLINE 0.5 MG TABLET. PO SCH (09:00)
== END 2020-01-11 13:10 | disposition home or self-care (01) ==
LOC: ER 12:27 → 4 NORTH 15:29
PROVIDERS: ADMIT Internal Medicine; ATTEND Internal Medicine
DX: I16.1 Hypertensive emergency (principal); N17.0 Acute kidney failure with tubular necrosis; F41.9 Anxiety disorder, unspecified; F17.200 Nicotine dependence, unspecified, uncomplicated; E78.5 Hyperlipidemia, unspecified; E11.9 Type 2 diabetes mellitus without complications; D75.1 Secondary polycythemia
CPT/HCPCS: 36415; 80048; 80076; 80307; 81001; 83690; 83735; 84100; 84484; 85025; 96361; 96374; 99284; G0378; J3490; J7030; 93005; G0379

== ENCOUNTER 2020-07-26 17:41 | Emergency (ER) | payer SELFPAY ==
[~2020-07-26] VITALS: Ht 170.2 cm; Wt 77.0 kg
[~2020-07-26 17:41] MED LIST changes: +AMLO-187 PO; -CLIN300C8 PO; +CLIN300C9 PO; +NITR100C6 PO
--- NOTE | 2020-07-26 18:23 | PHYS DOC ---
Past Medical History Past Medical History: Hypertension, Unknown Additional Past Medical Histor: HEART MURMUR, CHRONIC HEADACHES Past Surgical History: No Surgical History Additional Past Surgical Histo: BLOOD CLOT REMOVAL Smoking Status: Current Every Day Smoker Alcohol Use: Rarely Drug Use: None General Adult EDM: Chief Complaint: HYPERTENSION HPI: HPI: Patient is a 55 year old female who presents with states she had been off of her hypertension medications and on July 22 she got a refill of her hydrochlorothiazide 25 mg daily. She states she has been taking a daily ever since then. She states since she has had a headache that is all over the top and the back of the head and some dizziness that is continuous but will ease up at times. Patient states she has been taking Aleve for this pain. She last took Aleve was this morning. She rates her pain at an 8 out of 10. Patient denies chest pain, shortness of breath, edema, vision changes, numbness or tingling, focal weakness, syncope, fall, abdominal pain, nausea, vomiting, diarrhea, recent illness. Patient has a history of hypertension, heart murmur, chronic headaches, smoker. Review of Systems: Review of Systems: Constitutional: Denies fever or chills. [] Eyes: Denies change in visual acuity. [] HENT: Denies nasal congestion or sore throat. [] Respiratory: Denies cough or shortness of breath. [] Cardiovascular: Denies chest pain or edema. + Hypertension [] GI: Denies abdominal pain, nausea, vomiting, bloody stools or diarrhea. [] : Denies dysuria. [] Musculoskeletal: Denies back pain or joint pain. [] Integument: Denies rash. [] Neurologic: + headache, + dizziness, denies focal weakness or sensory changes. [] Endocrine: Denies polyuria or polydipsia. [] Lymphatic: Denies swollen glands. [] Psychiatric: Denies depression or anxiety. [] Heart Score: C/O Chest Pain: No HEART Score for Chest Pain: HEART Score for Chest Pain Response (Comments) Value History Slighlty/Non-Suspicious 0 ECG Nonspecific Repolarizatio 1 Age >45 - < 65 1 Total 2 Risk Factors: Risk Factors: DM, Current or recent (<one month) smoker, HTN, HLP, family history of CAD, obesity. Risk Scores: Score 0 - 3: 2.5% MACE over next 6 weeks - Discharge Home Score 4 - 6: 20.3% MACE over next 6 weeks - Admit for Clinical Observation Score 7 - 10: 72.7% MACE over next 6 weeks - Early Invasive Strategies Allergies: Allergies: Allergies Coded Allergies Type Severity Reaction Last Updated Verified amoxicillin Allergy Intermediate RASH 01/16/18 Yes Physical Exam: PE: Constitutional: Well developed, well nourished, no acute distress, non-toxic appearance. [] HENT: Normocephalic, atraumatic, bilateral external ears normal, oropharynx moist, no oral exudates, nose normal. [] Eyes: PERRLA, EOMI, conjunctiva normal, no discharge. [] Neck: Normal range of motion, no tenderness, supple, no stridor. [] Cardiovascular:Heart rate tachycardic regular rhythm, no murmur [] Lungs & Thorax: Bilateral breath sounds clear to auscultation [] Abdomen: Bowel sounds normal, soft, no tenderness, no masses, no pulsatile masses. [] Skin: Warm, dry, no erythema, no rash. [] Back: No tenderness, no CVA tenderness. [] Extremities: No tenderness, no cyanosis, no clubbing, ROM intact, no edema. [] Neurologic: Alert and oriented X 3, normal motor function, normal sensory function, no focal deficits noted. [] Psychologic: Affect normal, judgement normal, mood normal. [] Current Patient Data: Vital Signs: Vital Signs Date Time Temp Pulse Resp B/P (MAP) Pulse Ox O2 Delivery O2 Flow Rate FiO2 07/26/20 17:47 98.3 116 18 188/121 (143) 95 Room Air 98.3 EKG: EK and read by Dr. Valdez is sinus tachycardia no STEMI. Radiology/Procedures: Radiology/Procedures: [] Impression: [facility] [address] [place], [place] [id number] IMAGING REPORT Signed PATIENT: CHRIS MORALES ACCOUNT: [id number] : 1965 LOCATION: ER AGE: 55 SEX: F EXAM STATUS: REG ER ORD. PHYSICIAN: JENNIFER BUSTOS APRN REASON: HEADACHE AND DIZZINESS PROCEDURE: CT HEAD WO CONTRAST INDICATION: Reason: HEADACHE AND DIZZINESS / Spl. Instructions: / History: COMPARISON: May 2011 TECHNIQUE: Axial CT images obtained through the head without intravenous contrast. One or more of the following individualized dose reduction techniques were utilized for this examination: 1. Automated exposure control; 2. Adjustment of the mA and/or kV according to patient size; 3. Use of iterative reconstruction technique. FINDINGS: No intracranial hemorrhage. No midline shift. Basal cisterns patents. Ventricles and sulci are globally prominent. No acute osseous abnormality. Orbits and paranasal sinuses unremarkable. Scattered foci of low attenuation within the white matter. IMPRESSION: 1. No acute intracranial hemorrhage. 2. Scattered regions of low attenuation within the white matter. Non-specific in nature but frequently secondary to small vessel ischemic disease. 3. Prominence of ventricles and sulci which is frequently secondary to age related volume loss. Electronically signed by: Nicolas Bernstein MD (07/26/2020 6:49 PM) [id number] DICTATED and SIGNED BY: NICOLAS BERNSTEIN MD DATE: 07/26/[id number] 0 [facility] [address] [place] [address] IMAGING REPORT Signed PATIENT: CHRIS MORALES ACCOUNT: [id number] : 1965 LOCATION: ER AGE: 55 SEX: F EXAM STATUS: REG ER ORD. PHYSICIAN: JENNIFER BUSTOS APRN REASON: hypertension PROCEDURE: PORTABLE CHEST 1V INDICATION: Reason: hypertension / Spl. Instructions: / History: COMPARISON: January 2018 FINDINGS: Single view of chest obtained. No definite focal airspace consolidation or pulmonary edema. Mild tortuosity of the aortic contour is again seen with cardiac silhouette similar to prior. IMPRESSION: * No focal airspace consolidation or edema. Electronically signed by: Nicolas Bernstein MD (07/26/2020 6:43 PM) [id number] DICTATED and SIGNED BY: NICOLAS BERNSTENI MD DATE: 07/26/20 [id number] 0 Course & Med Decision Making: Course & Med Decision Making Pertinent Labs and Imaging studies reviewed. (See chart for details) See HPI. Alert and oriented x4. Ambulatory with a steady gait. Speaks in full clear sentences. Skin pink warm and dry. No peripheral edema. Blood work unremarkable. Blood pressures come down to 170/90. Patient states that she is still having headache she feels like the fentanyl made her headache worse. Chest x-ray and CT head showed no acute findings. She states she is not dizzy at this time. 2138: Patient is up and walking around. Patient came the nursing station and is upset about wait. Patient has not received migraine medication I have ordered for her. Patient states her right is ready and she will just deal with a headache. 2146: After speaking with patient she has now decided to stay and get the migraine medication I have ordered for her. [] Dragon Disclaimer: Dragon Disclaimer: This electronic medical record was generated, in whole or in part, using a voice recognition dictation system. NIHSS Stroke Scale NIH Stroke Scale: NIH Stroke Scale Response (Comments) Value Level of Consciousness: 0 Alert/Responsive 0 LOC Questions: 0 Answers both correctly 0 LOC Commands: 0 Performs both tasks 0 Best Gaze: 0 Normal 0 Visual: 0 No visual loss 0 Facial Palsy: 0 Normal, symmetrical 0 Motor - Left Arm 0 No drift 0 Motor - Right Arm 0 No drift 0 Motor - Left Leg 0 No drift 0 Motor: Right Leg 0 No drift 0 Limb Ataxia: 0 Absent 0 Sensory: 0 No loss 0 Best Language: 0 Normal 0 Dysathria: 0 Normal 0 Extinction and Inattention: 0 Normal 0 Total 0 Departure Departure Impression: Primary Impression: High blood pressure Qualified Codes: I10 - Essential (primary) hypertension Additional Impression: Head ache Qualified Codes: R51.9 - Headache, unspecified Disposition: 01 DC HOME SELF CARE/HOMELESS Condition: STABLE Referrals: NO PCP (PCP) Patient Instructions: General Headache Without Cause, Hypertension, Managing Your High Blood Pressure Additional Instructions: Follow-up with primary care provider if needed. Call your medications as prescribed and with food. If you have distant dizziness, vomiting, focal weakness, chest pain return emergency room. JENNIFER BUSTOS APRN Jul 26, 2020 18:23
[2020-07-26] MEDS ORDERED: fentaNYL PF VIAL 100 MCG/2 ML VIAL IVP ONE (18:45)
--- NOTE | 2020-07-26 18:45 | RAD ---
INDICATION: Reason: hypertension / Spl. Instructions: / History: COMPARISON: January 2018 FINDINGS: Single view of chest obtained. No definite focal airspace consolidation or pulmonary edema. Mild tortuosity of the aortic contour is again seen with cardiac silhouette similar to prior. IMPRESSION: * No focal airspace consolidation or edema. Electronically signed by: Pa Rebolledo MD (07/26/2020 6:43 PM) [id number]
--- NOTE | 2020-07-26 18:51 | RAD ---
INDICATION: Reason: HEADACHE AND DIZZINESS / Spl. Instructions: / History: COMPARISON: May 2011 TECHNIQUE: Axial CT images obtained through the head without intravenous contrast. One or more of the following individualized dose reduction techniques were utilized for this examinat ion: 1. Automated exposure control; 2. Adjustment of the mA and/or kV according to patient size; 3 . Use of iterative reconstruction technique. FINDINGS: No intracranial hemorrhage. No midline shift. Basal cisterns patents. Ventricles and sulci are globally prominent. No acute osseous abnormality. Orbits and paranasal sinuses unremarkable. Scattered foci of low attenuation within the white matter. IMPRESSION: 1. No acute intracranial hemorrhage. 2. Scattered regions of low attenuation within the white matter. Non-specific in nature but frequen tly secondary to small vessel ischemic disease. 3. Prominence of ventricles and sulci which is frequently secondary to age related volume loss. Electronically signed by: Pa Rebolledo MD (07/26/2020 6:49 PM) [id number]
[2020-07-26 19:14] LABS: BASO % 0 % (0-3); EOS # 0.1 x10^3/uL (0.0-0.7); EOS % 1 % (0-3); HEMATOCRIT 45.2 % (36.0-47.0); HEMOGLOBIN 15.6 g/dL (12.0-15.5); LYMPH # 1.8 x10^3/uL (1.0-4.8); LYMPH % 13 % (24-48); MEAN CORPUSCULAR HEMOGLOBIN 28 pg (25-35); MEAN CORPUSCULAR HGB CONC 35 g/dL (31-37); MEAN CORPUSCULAR VOLUME 82 fL (79-100); MONO # 1.2 x10^3/uL (0.0-1.1); MONO % 9 % (0-9); NEUT # 10.9 x10^3/uL (1.8-7.7); NEUT % 78 % (31-73); PLATELET COUNT 278 x10^3/uL (140-400); RED BLOOD COUNT 5.55 x10^6/uL (3.50-5.40); RED CELL DISTRIBUTION WIDTH 13.3 % (11.5-14.5); WHITE BLOOD COUNT 14.1 x10^3/uL (4.0-11.0)
[2020-07-26 19:20] LABS: BILIRUBIN,URINE NEGATIVE (NEG); CLARITY,URINE CLEAR; COLOR,URINE YELLOW; NITRITE,URINE NEGATIVE (NEG); PROTEIN,URINE NEGATIVE (NEG-TRACE)
[2020-07-26 19:25] LABS: PROTHROMBIN TIME PATIENT 13.9 SEC (11.7-14.0)
[2020-07-26 19:25] LABS: BARBITURATES NEG (NEG); BENZODIAZEPINES NEG (NEG); CANNABINOIDS NEG (NEG); COCAINE NEG (NEG); METHADONE NEG (NEG); OPIATES NEG (NEG); PHENCYCLIDINE NEG (NEG)
[2020-07-26 19:26] LABS: AMPHETAMINE/METHAMPHETAMINE NEG (NEG)
[2020-07-26 19:35] LABS: BACTERIA,URINE MANY /HPF (0-FEW)
[2020-07-26 19:55] LABS: CALCIUM 9.8 mg/dL (8.5-10.1); CREATININE 1.1 mg/dL (0.6-1.0); GFR 62.2; POTASSIUM 3.9 mmol/L (3.5-5.1)
[2020-07-26] MEDS ORDERED: LABETALOL 20 MG/4 ML DISP.SYRIN. IVP ONE (20:00)
[2020-07-26 20:02] LABS: ALBUMIN 3.7 g/dL (3.4-5.0); ALBUMIN/GLOBULIN RATIO 0.9 (1.0-1.7); TOTAL BILIRUBIN 0.4 mg/dL (0.2-1.0)
[2020-07-26] MEDS ORDERED: DEXAMETHASONE SOD PHOS 20 MG/5 ML VIAL. IV ONE (21:30)
[2020-07-26] MEDS ORDERED: KETOROLAC 30 MG/ML VIAL. IVP ONE (21:30)
[2020-07-26] MEDS ORDERED: PROCHLORPERAZINE 10 MG/2 ML VIAL. IV ONE (21:30)
[2020-07-26] MEDS ORDERED: diphenhydrAMINE 50 MG/ML VIAL IVP ONE (21:30)
[2020-07-26 23:43] VITALS: BP 182/99
--- NOTE | 2020-07-27 07:31 | EKG ---
[facility] [address] [place] [address] Test Date: 2020-07-26 Test Time: 19:16:22 Pat Name: CHRIS MORALES Department: Room: Gender: F Market Developer: : 1965 Requested By: JENNIFER BUSTOS Order Number: [id number] Reading MD: Measurements Intervals [place] Rate: 107 P: 37 TX: 158 QRS: -20 QRSD: 76 T: 19 QT: 340 QTc: 459 Interpretive Statements SINUS TACHYCARDIA LEFT ATRIAL ABNORMALITY LEFTWARD AXIS CONSIDER LEFT VENTRICULAR HYPERTROPHY ABNORMAL ECG RI6.02 No previous ECG available for comparison
== END 2020-07-27 00:07 | disposition home or self-care (01) ==
LOC: ER 17:41
DX: I10 Essential (primary) hypertension (principal); R51.9 Headache, unspecified; R42 Dizziness and giddiness; F17.200 Nicotine dependence, unspecified, uncomplicated; Z98.890 Other specified postprocedural states; Z88.1 Allergy status to other antibiotic agents
CPT/HCPCS: 36415; 70450; 71045; 80053; 80307; 81001; 83880; 84484; 85025; 85610; 87086; 93005; 96374; 96375; 99285; J0780; J1100; J1200; J1885; J3010; J3490

== ENCOUNTER 2021-01-20 10:19 | Emergency (ER) | payer SELFPAY ==
[~2021-01-20] VITALS: Ht 170.2 cm; Wt 79.5 kg
[~2021-01-20 10:19] MED LIST changes: +CLIN-94 PO; -CLIN300C9 PO
[2021-01-20] MEDS ORDERED: cloNIDine HCL 0.1 MG TABLET PO ONE (11:00)
[2021-01-20] MEDS ORDERED: DOXY100T PO (11:21)
--- NOTE | 2021-01-20 11:21 | PHYS DOC ---
Past Medical History Past Medical History: Hypertension, Unknown Additional Past Medical Histor: HEART MURMUR, CHRONIC HEADACHES Past Surgical History: No Surgical History Additional Past Surgical Histo: BLOOD CLOT REMOVAL Smoking Status: Current Every Day Smoker Alcohol Use: Occasionally Drug Use: None General Adult EDM: Chief Complaint: HEADACHE HPI: HPI: Patient is a 56 year old female with history of hypertension, who presents to the ED today complaining of a sinus infection. Patient states she has had nasal congestion for "a minute". Patient is also complaining of 5-9 out of 10 left- sided headache described as throbbing and intermittent, symptoms since yesterday. Patient denies anything exacerbating or relieving the headache. She states typically when she has this headache and congestion is a sinus infection. Patient denies any chest pain, cough, fever or nasal congestion. She states she missed work yesterday and would like a note for work. She states she was vaccinated against Covid, last Pfizer vaccine was in July. Review of Systems: Review of Systems: Constitutional: Denies fever or chills. [] Eyes: Denies change in visual acuity. [] HENT: Reports nasal congestion, denies sore throat Respiratory: Denies cough or shortness of breath. [] Cardiovascular: Denies chest pain or edema. [] GI: Denies abdominal pain, nausea, vomiting, bloody stools or diarrhea. [] : Denies dysuria. [] Musculoskeletal: Denies back pain or joint pain. [] Integument: Denies rash. [] Neurologic: Reports left-sided headache, denies focal weakness or sensory changes. [] Psychiatric: Denies depression or anxiety. [] Heart Score: C/O Chest Pain: N/A Risk Factors: Risk Factors: DM, Current or recent (<one month) smoker, HTN, HLP, family history of CAD, obesity. Risk Scores: Score 0 - 3: 2.5% MACE over next 6 weeks - Discharge Home Score 4 - 6: 20.3% MACE over next 6 weeks - Admit for Clinical Observation Score 7 - 10: 72.7% MACE over next 6 weeks - Early Invasive Strategies Current Medications: Current Medications Medications (Trade) Dose Ordered Sig/Mildred Start Time Stop Time Status Last Admin Dose Admin Clonidine HCl (Catapres) 0.2 mg 1X ONCE 01/20/21 11:00 01/20/21 11:03 DC Allergies: Allergies: Allergies Coded Allergies Type Severity Reaction Last Updated Verified amoxicillin Allergy Intermediate RASH 01/16/18 Yes Physical Exam: PE: Constitutional: Well developed, well nourished, no acute distress, non-toxic appearance. [] HENT: Normocephalic, atraumatic, bilateral external ears normal, oropharynx moist, no oral exudates, sounds congested nasally. Mild maxillary and frontal sinus tenderness on the left Eyes: PERRLA, EOMI, conjunctiva normal, no discharge. [] Neck: Normal range of motion, no tenderness, supple, no stridor. [] Cardiovascular:Heart rate regular rhythm, no murmur [] Lungs & Thorax: Bilateral breath sounds clear to auscultation [] Abdomen: Bowel sounds normal, soft, no tenderness, no masses, no pulsatile masses. [] Skin: Warm, dry, no erythema, no rash. [] Back: No tenderness, no CVA tenderness. [] Extremities: No tenderness, no cyanosis, no clubbing, ROM intact, no edema. [] Neurologic: Alert and oriented X 3, normal motor function, normal sensory functi on, no focal deficits noted. Cranial nerves II through XII intact Psychologic: Affect normal, judgement normal, mood normal. [] Current Patient Data: Vital Signs: Vital Signs Date Time Temp Pulse Resp B/P (MAP) Pulse Ox O2 Delivery O2 Flow Rate FiO2 01/20/21 10:26 98.2 87 18 215/111 (145) 98 Room Air 98.2 EKG: EKG: [] Radiology/Procedures: Radiology/Procedures: [] Course & Med Decision Making: Course & Med Decision Making Pertinent Labs and Imaging studies reviewed. (See chart for details) This is a 56-year-old female patient presenting to the ED today with a sinus infection and headache. Allergic to penicillin, was discharged on doxycycline. Blood pressure was 215/111 with a heart rate of 87. This patient appears to have uncontrolled hypertension. She states she used to be on 2 blood pressure medicines, she states she stopped seeing her PCP and currently has another PCP who put her on a different medicine that she does not take a day. Spoke to patient about compliance. Unfortunately she does not know what medicine she is supposed to be on. At some point she stated she ran out of the medicine. She states she has a PCP and will contact the PCP for her blood pressure medicines. She was provided a couple questions Stacy Disclaimer: Stacy Disclaimer: This electronic medical record was generated, in whole or in part, using a voice recognition dictation system. Departure Departure Impression: Primary Impression: High blood pressure Qualified Codes: I10 - Essential (primary) hypertension Additional Impressions: Acute sinusitis Qualified Codes: J01.00 - Acute maxillary sinusitis, unspecified Sinus headache Disposition: HOME / SELF CARE / HOMELESS Condition: STABLE Referrals: NO PCP (PCP) Follow-up with your primary care doctor as soon as possible Patient Instructions: Hypertension, Sinus Headache, [id number], Sinusitis Additional Instructions: You were evaluated in the emergency room for a sinus infection. We put you on antibiotics, ensure you complete them. Your blood pressure is high. Please make sure you are taking your blood pressure medicines. If you do not have blood pressure medicine please contact your primary care doctor and get a refill. Push fluids. Come back to the ED at any point symptoms worsen Scripts Doxycycline Hyclate (DOXYCYCLINE HYCLATE) 100 Mg Tablet 1 TAB PO BID, #20 TAB Prov: JAILENE OLSEN APRN 01/20/21 JAILENE OLSEN APRN Jan 20, 2021 11:21
[2021-01-20 11:34] VITALS: BP 164/90
== END 2021-01-20 11:36 | disposition home or self-care (01) ==
LOC: ER 10:19
DX: J01.00 Acute maxillary sinusitis, unspecified (principal); I10 Essential (primary) hypertension; F17.200 Nicotine dependence, unspecified, uncomplicated; Z88.1 Allergy status to other antibiotic agents
CPT/HCPCS: 99283